=== PATIENT | male | born 1940 | race Caucasian/White ===

== ENCOUNTER 2020-01-22 07:58 | Outpatient (CLI) | payer MEDICARE, OTHER, SELFPAY ==
--- NOTE | 2020-01-22 08:00 | USCV_ITS ---
Pelon Melo Age: 79 Gender: M : 1940 Exam Date: 01/22/2020 08:23 Ordering Phys: Austin Gay MD ([email or web address]) Technologist: Jessica Lala Exam Location: [facility] [place] Indication: Carotid stenosis surveillance Risk Factors: Unknown Previous Vascular Surgery: None Right Brachial BP: / Left Brachial BP: / Right Left Velocity (cm/s) Spectral Plaque Velocity (cm/s) Spectral Plaque Syst/Diast Broadening Syst/Diast Broadening 51.30/ 16.20 Prox CCA 58.10 / 10.30 60.70/ 15.40 Hetro Mid CCA 49.60 / 13.70 Hetro 47.90/ 11.10 Hetro Distal CCA 47.90 / 13.70 Hetro 160.10/39.60 Hetro Prox ICA 160.45/ 49.40 Hetro 106.10/23.40 Mid ICA 140.70/ 32.20 101.00/31.10 Distal ICA 83.90 / 17.10 68.40 Hetro ECA 129.80 Hetro 2.64 ICA/CCA 3.33 Not Vertebral Antegrade Visualized / cm/s 48.70/ 17.10 cm/s Bi Subclavian 60.70 73.00 FINDINGS Comparison:07-11-19 Diffuse bilateral atheromatous plaque with moderate but stable elevation of velocities. Greater disease on the right. CONCLUSIONS Right ICA stenosis 50-69%. Left ICA stenosis 50-69%. Moderate diffuse calcified plaque without significant progression. Dr. Kimberlee Kay DO (Electronically Signed) Final Date: 22 January 2020 14:10 S
== END 2020-01-22 07:59 | disposition home or self-care (01) ==
LOC: RAD 08:07
PROVIDERS: PCP Family Medicine; Visit Provider Internal Medicine Cardiovascular Disease
DX: I65.23 Occlusion and stenosis of bilateral carotid arteries (principal)
CPT/HCPCS: 93880

== ENCOUNTER 2020-07-26 10:00 | Outpatient (CLI) | payer MEDICARE, OTHER, SELFPAY ==
--- NOTE | 2020-07-26 10:15 | USCV_ITS ---
Pelon Melo Age: 79 Gender: M : 1940 Exam Date: 07/26/2020 10:09 Ordering Phys: Austin Gay MD ([email or web address]) Technologist: Jane Tillman [place] [facility] [place]ication: STENOSIS Risk Factors: Previous Vascular Surgery: Right Brachial BP: / Left Brachial BP: / Right Left Velocity (cm/s) Spectral Plaque Velocity (cm/s) Spectral Plaque Syst/Diast Broadening Syst/Diast Broadening 60.60/ 15.40 Prox CCA 85.40 / 14.80 60.60/ 12.10 Mid CCA 69.90 / 11.70 55.10/ 17.60 Distal CCA 74.60 / 14.80 174.00/32.60 Prox ICA 159.10/ 32.90 111.90/23.30 Mid ICA 153.80/ 45.10 122.70/29.50 Distal ICA 146.00/ 37.30 94.80 ECA 144.60 2.87 ICA/CCA 2.28 Antegrade Vertebral Antegrade 46.60/ 6.20 cm/s 48.90/ 14.00 cm/s Tri Subclavian Tri FINDINGS Moderate to heavy heterogeneous plaques bilaterally at the bifurcations and internal carotid arteries. Intimal thickening and minimal plaques in the common carotid arteries bilaterally. Antegrade flow in the vertebral arteries bilaterally. Normal/near normal Doppler flow velocities in the external carotid arteries bilaterally CONCLUSIONS Moderate to heavy heterogeneous plaques bilaterally at the bifurcations and internal carotid arterieswith velocity elevation consistent with 50-79% stenosis. Intimal thickening and minimal plaques in the common carotid arteries bilaterally. Compared to the study from 01/22/2020, there may not be a significant change Dr Krystal Dupree MD [facility] (Electronically Signed) Final Date: 27 July 2020 09:29 S
== END 2020-07-26 10:01 | disposition home or self-care (01) ==
LOC: US 10:01
PROVIDERS: PCP Family Medicine; Visit Provider Internal Medicine Cardiovascular Disease
DX: I65.23 Occlusion and stenosis of bilateral carotid arteries (principal)
CPT/HCPCS: 93880

== ENCOUNTER 2021-04-26 07:55 | Outpatient (CLI) | payer MEDICARE, OTHER, SELFPAY ==
--- NOTE | 2021-04-26 08:21 | FL_ITS ---
WS: [id number] UPPER GI WITH AIR TECHNICAL: Double contrast upper GI FLUOROSCOPY TIME: 3.3 min minutes CLINICAL INFORMATION: DYSPHAGIA COMPARISON: None. FINDINGS: Sternotomy. Cardiac pacer. Thoracic curve. Hypertrophic changes thoracic spine. Esophagus: Moderate esophageal dysmotility with delayed emptying. No evidence of stricture or obstruc ting mass. Reflux esophagitis. Gastroesophageal reflux: Reflux to the upper thoracic esophagus. Small esophageal hiatal hernia. Stomach: Rugal thickening consistent with gastritis. Normal emptying. Duodenum: Normal duodenal C-loop. Other findings: None. FL/FL upper GI w air* [id number] IMPRESSION: 1. Moderate esophageal dysmotility with delayed emptying on the upright and [place] imaging. Reflux esophagitis in the distal esophagus. 2. No evidence of stricture or obstructing mass. 3. Prominent reflux to the upper thoracic esophagus. Small esophageal hiatal h ernia. 4. Evidence of gastric rugal thickening consistent with gastritis
== END 2021-04-26 07:56 | disposition home or self-care (01) ==
PROVIDERS: PCP Family Medicine; Visit Provider Family Medicine
DX: R13.10 Dysphagia, unspecified (principal); K44.9 Diaphragmatic hernia without obstruction or gangrene
CPT/HCPCS: 74246

== ENCOUNTER 2021-08-15 08:56 | Outpatient (CLI) | payer MEDICARE, OTHER, SELFPAY ==
--- NOTE | 2021-08-15 09:30 | USCV_ITS ---
Pelon Melo Age: 80 Gender: M : 1940 Exam Date: 08/15/2021 09:06 Ordering Phys: Huber Ng M.D ([email or web address]) Technologist: Lacie Rand [place]am [place] [facility] [place] [facility] [place]ication: RECHECK OF CCA STENOSIS Risk Factors: Unknown Previous Vascular Surgery: None Right Brachial BP: / Left Brachial BP: / Right Left Velocity (cm/s) Spectral Plaque Velocity (cm/s) Spectral Plaque Syst/Diast Broadening Syst/Diast Broadening 70.60/ 17.60 Hetro Prox CCA 64.90 / 16.20 50.60/ 11.80 Hetro Mid CCA 49.70 / 16.00 Hetro 51.90/ 11.20 Hetro Distal CCA 56.50 / 18.30 Hetro 99.20/ 26.50 Hetro Prox ICA 136.60/ 46.70 Hetro 103.65/20.40 Hetro Mid ICA 202.30/ 44.25 Hetro 116.90/22.10 Distal ICA 133.00/ 21.90 Hetro 104.70 Hetro ECA 138.40 Hetro 2.31 ICA/CCA 2.84 Antegrade Vertebral Antegrade 41.20/ 10.10 cm/s 44.40/ 13.10 cm/s Tri Subclavian [place] 95.00 185.9 0 FINDINGS Moderate to heavy heterogeneous irregular plaques bilaterally at the bifurcations and proximal internal carotid arteries. Intimal thickening and minimal plaques in the common carotid arteries bilaterally. Antegrade flow in the vertebral arteries bilaterally. Normal Doppler flow velocity in the external carotid arteries bilaterally CONCLUSIONS Moderate to heavy heterogeneous plaques at the left bifurcation and proximal internal carotid artery with velocity elevation, suggesting 50 to 69% stenosis. Moderate to heavy heterogeneous plaques at the right bifurcation and proximal internal carotid artery with a velocity elevation suggesting less than 50% stenosis. Compared to the study from 07/26/2020, there may not be a significant change Dr Krystal Dupree MD [facility] (Electronically Signed) Final Date: 15 August 2021 14:53 S
== END 2021-08-15 08:57 | disposition home or self-care (01) ==
LOC: RAD 08:58
PROVIDERS: PCP Family Medicine; Visit Provider Internal Medicine
DX: I65.23 Occlusion and stenosis of bilateral carotid arteries (principal)
CPT/HCPCS: 93880

== ENCOUNTER → 2021-12-16 08:29 | Outpatient (BNVA) | payer MEDICARE, OTHER, SELFPAY | PROVIDERS: PCP Family Medicine; Visit Provider Internal Medicine | DX: Z45.02 Encounter for adjustment and management of automatic implantable cardiac defibrillator (principal) | CPT/HCPCS: 93282 ==

== ENCOUNTER → 2022-04-25 10:22 | Outpatient (BNVA) | payer MEDICARE, SELFPAY | PROVIDERS: PCP Family Medicine; Visit Provider Family Medicine | DX: I25.10 Atherosclerotic heart disease of native coronary artery without angina pectoris (principal); E78.5 Hyperlipidemia, unspecified; I48.91 Unspecified atrial fibrillation; E11.9 Type 2 diabetes mellitus without complications; I10 Essential (primary) hypertension; Z79.01 Long term (current) use of anticoagulants | CPT/HCPCS: 80053; 80061; 83036; 85025; 85610 ==

== ENCOUNTER 2022-05-01 12:18 | Outpatient (CLI) | payer MEDICARE, OTHER, SELFPAY ==
--- NOTE | 2022-05-01 12:45 | USCV_ITS ---
Pelon Melo Age: 81 Gender: M : 1940 Exam Date: 05/01/2022 12:37 Ordering Phys: Huber Ng M.D ([email or web address]) Technologist: AD MCBRIDE [place] [facility] [place]: CCA disease Risk Factors: Previous Vascular Surgery: Right Brachial BP: / Left Brachial BP: / Right Left Velocity (cm/s) Spectral Plaque Velocity (cm/s) Spectral Plaque Syst/Diast Broadening Syst/Diast Broadening 52.10/ 15.40 Prox CCA 70.90 / 9.70 49.70/ 14.00 Mid CCA 53.40 / 12.50 60.60/ 8.50 Distal CCA 61.40 / 12.50 139.60/40.70 Prox ICA 117.10/ 29.60 73.60/ 17.40 Mid ICA 126.20/ 30.70 79.80/ 17.40 Distal ICA 132.90/ 14.90 60.20 ECA 98.40 2.30 ICA/CCA 1.87 Antegrade Vertebral Antegrade 30.70/ 2.00 cm/s 42.40/ 8.00 cm/s Tri Subclavian Tri 52.00 80.00 FINDINGS Comparison 08/15/21 CONCLUSIONS Right ICA stenosis 50-69%. slightly progressed compared to previous. Left ICA stenosis <50%. Velocites slightly improved compared to previous. Moderate calcified atheromatous plaque right carotid bulb/ICA. Moderate calcified atheromatous plaque left carotid bulb/ICA. Plaque in the CCA's bilaterally right greater than left Normal antegrade Doppler flow noted in the right vertebral artery. Normal antegrade Doppler flow noted in the left vertebral artery. Cristian Murray MD (Electronically Signed) Final Date: 01 May 2022 16:38 S
--- NOTE | 2022-05-01 13:00 | USCV_ITS ---
Pelon Melo Age: 81 Gender: M : 1940 Exam Date: 05/01/2022 13:15 Ordering Phys: Huber Ng M.D ([email or web address]) Technologist: Sonal Gleason [place]am [place] [facility] [place]ication: CAD BP: 130 / 64 HR: 52 Rhythm: Sinus Technical Quality: Good MEASUREMENTS (Male / Female) Normal Values 2D ECHO LV Diastolic Diameter PLAX 4.8 cm 4.2 - 5.9 / 3.9 - 5.3 cm LV Systolic Diameter PLAX 3.6 cm IVS Diastolic Thickness 1.1 cm 0.6 - 1.0 / 0.6 - 0.9 cm IVS Systolic Thickness 1.7 cm LVPW Diastolic Thickness 1.4 cm 0.6 - 1.0 / 0.6 - 0.9 cm LVPW Systolic Thickness 1.7 cm LV Ejection Fraction 2D Teich 48.8 % LV Ejection Fraction MOD 2C 60.3 % LV Ejection Fraction 2C AL 60.0 % LA Diameter 5.2 cm LA Width 3.6 cm LA Height 5.9 cm RA Width 5.0 cm RA Height 5.1 cm Aorta at Sinotubular Diameter 2.9 cm IVC Diameter 1.5 cm M-MODE MV E Point Septal Separation 0.7 cm DOPPLER AV Peak Velocity 205.0 cm/s LVOT Peak Velocity 63.0 cm/s MV Peak Velocity 120.0 cm/s MV Area PHT 4.2 cm squared Mitral E to A Ratio 2.5 MV E' Velocity 56.5 cm/s Mitral E to MV E' Ratio 12.6 Mitral E to LV E' Lateral Ratio 10.2 Mitral E to LV E' Septal Ratio 16.3 TR Peak Velocity 237.5 cm/s TR Peak Gradient 22.6 mmHg Right Atrial Pressure 3.0 mmHg Pulmonary Artery Systolic Pressu 25.6 mmHg PV Peak Velocity 104.0 cm/s RV Acceleration Time 0.1 s RV Ejection Time 0.3 s RV AcT/ET 0.4 FINDINGS Left Ventricle Left ventricle is normal in size. LV systolic function is normal with EF 50-55%. No regional wall motion abnormalities are seen. Right Ventricle RV is normal in size and function. Pacemaker lead is seen Right Atrium Normal in size. Pacemaker lead is seen Left Atrium Normal in size Mitral Valve Moderate mitral annular calcification is seen. Moderate eccentric regurgitation Aortic Valve Aortic valve is thickened and calcified. Mild aortic regurgitation. Mild aortic stenosis with mean gradient across aortic valve of 7.2mmHg. Tricuspid Valve Mild tricuspid regurgitation. Pulmonary artery systolic pressure is normal Pulmonic Valve Not well-visualized. Mild pulmonic regurgitation. Pericardium Normal Aorta Mildly dilated ascending aorta IVC IVC appears to normal CONCLUSIONS LV systolic function is normal with EF of 50-55% Mitral annular calcification is seen. Moderate eccentric regurgitation Aortic valve is thickened and calcified. Mild aortic regurgitation. Mild aortic stenosis Mild tricuspid regurgitation Mild pulmonic regurgitation Mildly dilated ascending aorta Compared to prior echocardiogram from 04/21/2017, LV systolic function has slightly improved. Huber Ng MD (Electronically Signed) Final Date: 04 May 2022 12:56 S
== END 2022-05-01 12:19 | disposition home or self-care (01) ==
LOC: RAD 12:22
PROVIDERS: PCP Family Medicine; Visit Provider Internal Medicine
DX: R01.1 Cardiac murmur, unspecified (principal); I65.23 Occlusion and stenosis of bilateral carotid arteries; I08.3 Combined rheumatic disorders of mitral, aortic and tricuspid valves
CPT/HCPCS: 93306; 93880

== ENCOUNTER → 2022-05-29 08:01 | Outpatient (BNVA) | payer MEDICARE, OTHER, SELFPAY | PROVIDERS: PCP Family Medicine; Visit Provider Family Medicine | DX: Z79.01 Long term (current) use of anticoagulants (principal) | CPT/HCPCS: 85610 ==

== ENCOUNTER 2022-06-09 09:58 | Outpatient (CLI) | payer MEDICARE, OTHER, SELFPAY ==
--- NOTE | 2022-06-09 10:20 | FL_ITS ---
WS: [id number] ESOPHAGRAM TECHNIQUE: Double contrast examination was performed with thin and thick barium. Upright and SMITH imag es were obtained. CLINICAL INFORMATION: Dysphagia, unspecified R13.10 COMPARISON: April 18, 2021 FINDINGS: Swallowing: No evidence of aspiration or penetration. Esophagus: Mild esophageal dysmotility with delayed emptying. Evidence of esophagitis distal one thir d esophagus. Prominent gastroesophageal SILENT reflux worse in the supine position. Reflux to the tho racic inlet. Small esophageal hiatal hernia. No high-grade stricture or obstructing mass. Gastroesophageal reflux: Prominent reflux to the thoracic inlet. Fluoroscopy time: 4min [id number] # of spot films: 15 FL/FL barium swallow [id number] IMPRESSION: Findings are similar compared to April 26, 2021 1. Moderate esophageal dysmotility with delayed emptying 2. Evidence of esophagitis in the distal one third esophagus with prominent ac tive silent reflux in the upright and supine position. This is worse in the sup ine position to the thoracic inlet. 3. No evidence of obstructing stricture or mass. 4. No evidence of aspiration penetration. 5. Prior sternotomy with AICD.
== END 2022-06-09 09:59 | disposition home or self-care (01) ==
PROVIDERS: PCP Family Medicine; Visit Provider Specialist
DX: R13.10 Dysphagia, unspecified (principal)
CPT/HCPCS: 74220

== ENCOUNTER → 2022-06-30 10:37 | Outpatient (BNVA) | payer MEDICARE, OTHER, SELFPAY | PROVIDERS: PCP Family Medicine; Visit Provider Internal Medicine | DX: I25.10 Atherosclerotic heart disease of native coronary artery without angina pectoris (principal); I25.5 Ischemic cardiomyopathy; Z95.1 Presence of aortocoronary bypass graft; E78.5 Hyperlipidemia, unspecified; I48.91 Unspecified atrial fibrillation; Z79.01 Long term (current) use of anticoagulants; I65.23 Occlusion and stenosis of bilateral carotid arteries; I12.9 Hypertensive chronic kidney disease with stage 1 through stage 4 chronic kidney disease, or unspecified chronic kidney disease; E11.22 Type 2 diabetes mellitus with diabetic chronic kidney disease; F17.210 Nicotine dependence, cigarettes, uncomplicated; N18.9 Chronic kidney disease, unspecified; Z79.84 Long term (current) use of oral hypoglycemic drugs; Z95.810 Presence of automatic (implantable) cardiac defibrillator | CPT/HCPCS: 99214 ==

== ENCOUNTER → 2022-10-11 15:49 | Outpatient (BNVA) | payer MEDICARE, OTHER, SELFPAY | PROVIDERS: PCP Family Medicine; Visit Provider Internal Medicine | DX: Z45.02 Encounter for adjustment and management of automatic implantable cardiac defibrillator (principal) | CPT/HCPCS: 93296 ==

== ENCOUNTER → 2022-10-24 08:09 | Outpatient (BNVA) | payer MEDICARE, OTHER, SELFPAY | PROVIDERS: PCP Family Medicine; Visit Provider Family Medicine | DX: E78.5 Hyperlipidemia, unspecified (principal); I25.10 Atherosclerotic heart disease of native coronary artery without angina pectoris; N18.9 Chronic kidney disease, unspecified; I48.91 Unspecified atrial fibrillation; E11.9 Type 2 diabetes mellitus without complications; I10 Essential (primary) hypertension; Z79.01 Long term (current) use of anticoagulants | CPT/HCPCS: 80053; 80061; 83036; 85025; 85610 ==

== ENCOUNTER → 2022-11-23 11:39 | Outpatient (BNVA) | payer MEDICARE, OTHER, SELFPAY | PROVIDERS: PCP Family Medicine; Visit Provider Family Medicine | DX: Z79.01 Long term (current) use of anticoagulants (principal) | CPT/HCPCS: 85610 ==

== ENCOUNTER → 2022-12-21 09:01 | Outpatient (BNVA) | payer MEDICARE, OTHER, SELFPAY | PROVIDERS: PCP Family Medicine; Visit Provider Family Medicine | DX: Z79.01 Long term (current) use of anticoagulants (principal); I48.91 Unspecified atrial fibrillation | CPT/HCPCS: 85610 ==

== ENCOUNTER 2023-01-04 08:32 | Outpatient (CLI) | payer MEDICARE, OTHER, SELFPAY ==
--- NOTE | 2023-01-04 08:45 | USCV_ITS ---
Pelon Melo Age: 82 Gender: M : 1940 Exam Date: 01/04/2023 09:07 Ordering Phys: Huber Ng M.D Technologist: HUNTER Exam Location: [facility] [place] Indication: eval for stenosis Risk Factors: Previous Vascular Surgery: Right Brachial BP: / Left Brachial BP: / Right Left Velocity (cm/s) Spectral Plaque Velocity (cm/s) Spectral Plaque Syst/Diast Broadening Syst/Diast Broadening 41.40/ 7.70 Prox CCA 56.20 / 9.90 52.60/ 10.70 Mid CCA / 46.00/ 9.20 Distal CCA 40.10 / 8.50 160.60/36.60 Prox ICA 142.10/ 37.80 50.70/ 13.20 Mid ICA 97.60 / 13.80 97.00/ 15.40 Distal ICA 96.30 / 21.30 56.50 ECA 109.80 3.10 ICA/CCA 2.53 Antegrade Vertebral Antegrade 22.50/ 4.30 cm/s 35.10/ 7.60 cm/s Bi Subclavian Tri 86.60 52.10 FINDINGS Velocities increased bilaterally since 2021 CONCLUSIONS Right ICA stenosis 50-69%. Moderate atheromatous plaque right carotid bulb/ICA. Left ICA stenosis 50-69%. Moderate atheromatous plaque left carotid bulb/ICA. Moderate plaque in bilateral CCA's Normal antegrade Doppler flow noted in the right vertebral artery. Normal antegrade Doppler flow noted in the left vertebral artery. Cristian Murray MD (Electronically Signed) Final Date: 04 January 2023 17:53 S
== END 2023-01-04 08:33 | disposition home or self-care (01) ==
LOC: RAD 08:32
PROVIDERS: PCP Family Medicine; Visit Provider Internal Medicine
DX: I65.23 Occlusion and stenosis of bilateral carotid arteries (principal)
CPT/HCPCS: 93880

== ENCOUNTER → 2023-01-12 08:56 | Outpatient (BNVA) | payer MEDICARE, OTHER, SELFPAY | PROVIDERS: PCP Family Medicine; Visit Provider Internal Medicine | DX: I25.10 Atherosclerotic heart disease of native coronary artery without angina pectoris (principal); I25.5 Ischemic cardiomyopathy; Z95.1 Presence of aortocoronary bypass graft; E78.5 Hyperlipidemia, unspecified; I48.91 Unspecified atrial fibrillation; E11.9 Type 2 diabetes mellitus without complications; I65.23 Occlusion and stenosis of bilateral carotid arteries; F17.220 Nicotine dependence, chewing tobacco, uncomplicated; I12.9 Hypertensive chronic kidney disease with stage 1 through stage 4 chronic kidney disease, or unspecified chronic kidney disease; E11.22 Type 2 diabetes mellitus with diabetic chronic kidney disease; N18.9 Chronic kidney disease, unspecified; Z79.84 Long term (current) use of oral hypoglycemic drugs | CPT/HCPCS: 99214 ==

== ENCOUNTER 2023-01-22 13:00 | Outpatient (CLI) | payer MEDICARE, OTHER, SELFPAY ==
--- NOTE | 2023-01-22 13:00 | CT_ITS ---
WS: [id number] CTA NECK TECHNIQUE: Contrast enhanced CTA of the neck with coronal and sagittal reformatted images and maximum intensity projection (MIP) images. NASCET criteria utilized. CLINICAL INFORMATION: Bilateral Carotid Stenosis COMPARISON: Carotid ultrasound January 04, 2023 DLP: 276.[address] scans at [facility] use at least one of these dose optimization techniques: automated e xposure control; mA and/or kV adjustment per patient size (includes targeted exams where dose is matc hed to clinical indication); or iterative reconstruction. FINDINGS: RIGHT: RIGHT common carotid artery is patent. Moderate atheromatous plaque RIGHT carotid bulb extendi ng into the ICA. RIGHT ICA stenosis measures 61%. RIGHT ICA remains patent to the skull base. [place] us carotid calcification. LEFT: LEFT common carotid artery is patent. Moderate calcified atheromatous plaque LEFT carotid bulb extending into the ICA. LEFT ICA stenosis measures 68%. LEFT ICA remains patent to the skull base. Ca vernous carotid calcification. LEFT vertebral artery is patent. Calcification of the LEFT vertebral artery origin. Tiny hypoplastic RIGHT vertebral artery. LEFT vertebral artery is patent to the basilar junction. Dense intracranial L EFT vertebral artery calcification. Moderate intracranial stenosis LEFT vertebral artery. Both ICAs are patent at the skull base. Moderate cavernous carotid calcification. Mastoid air cells a re well aerated. Paranasal sinuses are well aerated. Normal posterior nasopharynx and parapharyngeal fat. Calcified RIGHT thyroid nodules largest measuring 9 mm. Moderate spondylitic changes cervical sp ine. Prior sternotomy. Proximal subclavian arteries are patent. CT/CT angio neck [id number] IMPRESSION: 1. Dense calcified atheromatous plaque both carotid bulbs extending into the I Mira. 2. RIGHT ICA stenosis measures 61%. 3. LEFT ICA stenosis measures 68%. 4. LEFT dominant vertebral artery. Tiny hypoplastic RIGHT vertebral artery. 5. Partially visualized dense cavernous chronic calcification. 6. Calcified RIGHT thyroid nodule measuring 10 mm.
[2023-01-22 13:29] LABS: Blood Urea Nitrogen 20 mg/dL (8-23)
[2023-01-22] MEDS: iohexol 350 mg/mL 500 mL Btl (per mL) IV (13:37)
== END 2023-01-22 13:01 | disposition home or self-care (01) ==
LOC: RAD 13:05
PROVIDERS: PCP Family Medicine; Visit Provider Internal Medicine
DX: I65.23 Occlusion and stenosis of bilateral carotid arteries (principal)
CPT/HCPCS: 70498; 82565; 84520; Q9967

== ENCOUNTER → 2023-02-15 08:58 | Outpatient (BNVA) | payer MEDICARE, OTHER, SELFPAY | PROVIDERS: PCP Family Medicine; Visit Provider Thoracic Surgery (Cardiothoracic Vascular Surgery) | DX: I65.23 Occlusion and stenosis of bilateral carotid arteries (principal); F17.220 Nicotine dependence, chewing tobacco, uncomplicated; Z79.01 Long term (current) use of anticoagulants; Z95.810 Presence of automatic (implantable) cardiac defibrillator | CPT/HCPCS: 99203 ==

== ENCOUNTER → 2023-02-15 10:00 | Outpatient (BNVA) | payer MEDICARE, OTHER, SELFPAY | PROVIDERS: PCP Family Medicine; Visit Provider Family Medicine | DX: Z79.01 Long term (current) use of anticoagulants (principal) | CPT/HCPCS: 85610 ==

== ENCOUNTER → 2023-03-19 10:30 | Outpatient (BNVA) | payer MEDICARE, OTHER, SELFPAY | PROVIDERS: PCP Family Medicine; Visit Provider Family Medicine | DX: Z79.01 Long term (current) use of anticoagulants (principal) | CPT/HCPCS: 85610 ==

== ENCOUNTER → 2023-04-17 09:03 | Outpatient (BNVA) | payer MEDICARE, OTHER, SELFPAY | PROVIDERS: PCP Family Medicine; Visit Provider Family Medicine | DX: I25.5 Ischemic cardiomyopathy (principal); I25.10 Atherosclerotic heart disease of native coronary artery without angina pectoris; I48.91 Unspecified atrial fibrillation; E11.9 Type 2 diabetes mellitus without complications; I65.23 Occlusion and stenosis of bilateral carotid arteries; R06.00 Dyspnea, unspecified; I10 Essential (primary) hypertension | CPT/HCPCS: 80053; 80061; 83036; 83880; 84443; 85025 ==

== ENCOUNTER → 2023-04-25 15:33 | Outpatient (BNVA) | payer MEDICARE, OTHER, SELFPAY | PROVIDERS: PCP Family Medicine; Visit Provider Internal Medicine | DX: Z45.02 Encounter for adjustment and management of automatic implantable cardiac defibrillator (principal) | CPT/HCPCS: 93296 ==

== ENCOUNTER 2023-04-27 10:02 | Outpatient (CLI) | payer MEDICARE, OTHER, SELFPAY ==
--- NOTE | 2023-04-27 10:15 | USCV_ITS ---
Pelon Melo Age: 82 Gender: M : 1940 Exam Date: 04/27/2023 10:18 Ordering Phys: Иван Cabezas MD Technologist: CT Exam Location: [facility] [place] Indication: cad BP: 135 / 80 HR: 43 Rhythm: Sinus Technical Quality: Adequate MEASUREMENTS (Male / Female) Normal Values 2D ECHO LV Chamber Size 6.1 cm RV Chamber Size 4.7 cm LVOT Diameter 2.1 cm LV Ejection Fraction MOD 2C 35.3 % LV Ejection Fraction 2C AL 35.6 % LA Diameter 5.6 cm LA Width 4.9 cm LA Height 7.7 cm RA Width 4.9 cm RA Height 6.7 cm Aorta at Sinotubular Diameter 2.3 cm IVC Diameter 1.9 cm M-MODE Aortic Annulus Diameter 2.4 cm LA Ao Ratio MM 2.3 MV E Point Septal Separation 0.7 cm DOPPLER AV Peak Velocity 255.0 cm/s LVOT Peak Velocity 86.0 cm/s AV Area Cont Eq vti 1.0 cm squared AV Area Cont Eq pk 1.2 cm squared MV E' Velocity 12.0 cm/s TR Peak Velocity 352.2 cm/s TR Peak Gradient 49.6 mmHg TR Mean Velocity 225.4 cm/s TR Mean Gradient 23.7 mmHg TR Velocity Time Integral 106.1 cm TV Peak E Velocity 111.0 cm/s Right Atrial Pressure 3.0 mmHg Pulmonary Artery Systolic Pressu 52.6 mmHg PV Peak Velocity 79.0 cm/s FINDINGS Left Ventricle Left ventricle is normal size. LV systolic function is normal with EF of 55 to 60%. No regional wall motion abnormalities are seen. Right Ventricle RV is hypokinetic Right Atrium Dilated. Pacemaker lead is seen Left Atrium Dilated Mitral Valve Mitral valve is thickened. Moderate mitral regurgitation Aortic Valve Aortic valve is thickened and calcified. Mild to moderate aortic stenosis with aortic valve area 1.01 cm squared and mean gradient across aortic valve of 11.6 mmHg. Moderate aortic regurgitation. Tricuspid Valve Moderate to severe tricuspid regurgitation. RVSP is 50-55mmHg. This is consistent with moderate pulmonary hypertension Pulmonic Valve Not well visualized. Mild pulmonic regurgitation Pericardium Normal Aorta Normal in size IVC Dilated CONCLUSIONS LV systolic function is normal with EF 55 to 60%. RV is hypokinetic Biatrial dilation. Moderate mitral regurgitation Mild to moderate aortic stenosis. Moderate aortic regurgitation Moderate to severe tricuspid regurgitation. Moderate pulmonary hypertension Mild pulmonic regurgitation IVC is dilated Compared to prior echocardiogram from 2021, no significant changes are seen Huber Ng MD (Electronically Signed) Final Date: 08 May 2023 16:46 S
== END 2023-04-27 10:03 | disposition home or self-care (01) ==
PROVIDERS: PCP Family Medicine; Visit Provider Family Medicine
DX: R07.9 Chest pain, unspecified (principal); I34.0 Nonrheumatic mitral (valve) insufficiency; I07.1 Rheumatic tricuspid insufficiency; I27.20 Pulmonary hypertension, unspecified
CPT/HCPCS: 93306

== ENCOUNTER 2023-04-30 08:50 | Outpatient (CLI) | payer MEDICARE, OTHER, SELFPAY ==
[2023-04-30 09:41] VITALS: BMI 32.2
--- NOTE | 2023-04-30 09:41 | ECG_ITS ---
[facility] Test Date: 2023-04-30 Pat Name: Pelon Melo Department: Room: Gender: Male Equal Opportunity Specialist: Lin Arreola : 1940 Requested By: Иван Trotter Order Number: [id number] Leo MD: Savannah Milligan M.D. Interpretive Statements NAME OF STUDY: LEXISCAN SESTAMIBI STRESS TEST INDICATION: Dyspnea PROCEDURE: At the baseline, the blood pressure was 146/92 mmHg, oxygen saturation of 98% with a heart rate of 50 beats per min. The electrocardiogram showed sinus bradycardia with first-degree AV block. Right bundle branch block. ST depression and T wave inversion in lead II, 3, aVF V3 to V6. The Lexiscan was infused over a period of 20 seconds. A total of 0.4 milligrams of Lexiscan was infused. The stress phase was continued for a total of 5 minutes. Heart rate at the end of the stress phase was 45 bpm, oxygen saturation 98% with a blood pressure 119/71 mmHg. The EKG at the peak infusion revealed no significant ST-T wave changes. Sestamibi was injected 20 seconds after the Lexiscan infusion. Blood pressure at the end of the recovery phase was 129/63 mmHg, oxygen saturation 98% with a heart rate of 45 beats per minute. CONCLUSION: 1. Equivocal EKG response to LexiScan infusion to baseline ST-T wave changes in inferolateral leads. 2. No LexiScan induced chest pain or cardiac arrhythmia. 3. Normal blood pressure and heart rate response. 4. Sestamibi/sestamibi perfusion scan pending; see separate report. Electronically Signed On 05-04-2023 14:09:32 CDT by Savannah Milligan M.D. [id number]
--- NOTE | 2023-04-30 09:45 | NMCV_ITS ---
NM guerrero perf SPECT r/s* [id number] Pelon Melo Age: 82 Gender: M : 1940 Exam Date: 04/30/2023 10:31 Ordering Phys: Иван Cabezas MD Technologist: ARIANA Sal Exam Location: [facility] Indications: SHORTNESS OF BREATH, ATHEROSCLEROTIC HEART DISEASE STRESS TEST Please see separate stress test report in [facility] for full findings IMAGE PROTOCOL Rest/Stress 1 Lexiscan Day Radiopharmaceutical Dose (mCi) Administration Site Administered by Rest: Tc-99m 10.8 IV ARIANA Paniagua Sestamibi Stress:Tc-99m 33.0 IV ARIANA Sal Sestamibi Rest: 30-Apr-2023 60 Discovery 630 Stress: 30-Apr-2023 30 Discovery 630 0.4mg Lexiscan. Images obtained in supine and prone position. SPECT RESULTS Technical Quality: Excellent Raw Data Analysis: Normal Image Corrections: No attenuation or motion correction applied Summed Stress Score: 6 Summed Rest Score: 6 Summed Difference Score: 1 PERFUSION FINDINGS Small size perfusion abnormality of mild severity of basal to mid inferolateral jose and mid inferior wall on rest images with subtle reversibility in apical lateral wall on supine stress images. Rest images show improved tracer uptake in inferior and inferolateral jose. FUNCTIONAL RESULTS (calculated via Gated SPECT) Stress Image LV EF (%): 64 Stress EDV (mL):165 TID: 1.16 Stress ESV (mL):60 FUNCTIONAL FINDINGS: The left ventricle is normal in size. Transient Ischemia Dilatation of 1.16. The left ventricular ejection fraction is normal with a value of 64%. There is normal left ventricular wall thickening. IMPRESSIONS 1. Myocardial perfusion imaging is normal. Attenuation artifact noted in inferior lateral wall. 2. Overall left ventricular systolic function is normal without regional wall motion abnormalities, LVEF=64%. 3. EKG portion of the study will be reported separately. 4. Scan indicates low risk for cardiac events. Savannah Milligan MD (Electronically Signed) Final Date: 04 May 2023 14:35 S
[2023-04-30] MEDS: regadenoson 0.4 Mg/5 ml Syringe IVP (11:11)
[2023-04-30 11:27] VITALS: BP 129/63; PULSE 52
== END 2023-04-30 08:51 | disposition home or self-care (01) ==
LOC: CDL 08:52
PROVIDERS: PCP Family Medicine; Visit Provider Family Medicine
DX: R06.02 Shortness of breath (principal); I25.10 Atherosclerotic heart disease of native coronary artery without angina pectoris
CPT/HCPCS: 36415; 78452; 93017; 96374; A9500; J2785

== ENCOUNTER → 2023-07-13 08:52 | Outpatient (BNVA) | payer MEDICARE, OTHER, SELFPAY | PROVIDERS: PCP Family Medicine; Visit Provider Internal Medicine Cardiovascular Disease | DX: I48.91 Unspecified atrial fibrillation (principal); Z79.01 Long term (current) use of anticoagulants; I65.23 Occlusion and stenosis of bilateral carotid arteries; Z95.810 Presence of automatic (implantable) cardiac defibrillator; I13.10 Hypertensive heart and chronic kidney disease without heart failure, with stage 1 through stage 4 chronic kidney disease, or unspecified chronic kidney disease; E11.22 Type 2 diabetes mellitus with diabetic chronic kidney disease; Z79.84 Long term (current) use of oral hypoglycemic drugs; N18.9 Chronic kidney disease, unspecified; F17.220 Nicotine dependence, chewing tobacco, uncomplicated; E78.5 Hyperlipidemia, unspecified; Z95.1 Presence of aortocoronary bypass graft; I25.10 Atherosclerotic heart disease of native coronary artery without angina pectoris; I25.5 Ischemic cardiomyopathy; R06.00 Dyspnea, unspecified | CPT/HCPCS: 99214 ==

== ENCOUNTER 2023-07-19 08:23 | Outpatient (CLI) | payer MEDICARE, OTHER, SELFPAY ==
--- NOTE | 2023-07-19 08:45 | USCV_ITS ---
Pelon Melo Age: 82 Gender: M : 1940 Exam Date: 07/19/2023 08:34 Ordering Phys: Fernando Rodriguez MD (Andy) ([email or web address]/[facility] [place]) Technologist: Exam Location: [facility] [place] Indication: cca disease Risk Factors: Previous Vascular Surgery: Right Brachial BP: / Left Brachial BP: / Right Left Velocity (cm/s) Spectral Plaque Velocity (cm/s) Spectral Plaque Syst/Diast Broadening Syst/Diast Broadening 66.20/ 13.20 Hetro Prox CCA 84.10 / 19.70 Hetro 71.70/ 15.40 Hetro Mid CCA 107.80/ 22.30 Hetro 81.60/ 14.30 Hetro Distal CCA 76.20 / 18.40 Hetro 123.35/22.40 Hetro Prox ICA 199.00/ 32.20 Hetro 101.20/22.30 Hetro Mid ICA 160.80/ 20.10 Hetro 122.30/21.00 Hetro Distal ICA 138.70/ 16.10 Hetro 116.90 ECA 169.60 1.82 ICA/CCA 1.85 Antegrade Vertebral Antegrade 85.40/ 25.00 cm/s 45.10/ 10.10 cm/s Bi Subclavian Bi 77.60 246.5 0 FINDINGS Left ICA velocities slightly progressed compared to previous 01/04/23 CONCLUSIONS Right ICA stenosis <50% at the upper end of the range.. Moderate calcified atheromatous plaque right carotid bulb/ICA. Left ICA stenosis 50-69%. Moderate calcified atheromatous plaque left carotid bulb/ICA. Normal antegrade Doppler flow noted in the right vertebral artery. Normal antegrade Doppler flow noted in the left vertebral artery. Cristian Murray MD (Electronically Signed) Final Date: 19 July 2023 13:46 S
== END 2023-07-19 08:24 | disposition home or self-care (01) ==
LOC: RAD 08:23
PROVIDERS: PCP Family Medicine; Visit Provider Thoracic Surgery (Cardiothoracic Vascular Surgery)
DX: I65.23 Occlusion and stenosis of bilateral carotid arteries (principal)
CPT/HCPCS: 85610; 93880

== ENCOUNTER → 2023-08-08 12:28 | Outpatient (BNVA) | payer MEDICARE, OTHER, SELFPAY | PROVIDERS: PCP Family Medicine; Visit Provider Internal Medicine | DX: Z45.02 Encounter for adjustment and management of automatic implantable cardiac defibrillator (principal) | CPT/HCPCS: 93296 ==

== ENCOUNTER → 2023-08-16 09:43 | Outpatient (BNVA) | payer MEDICARE, OTHER, SELFPAY | PROVIDERS: PCP Family Medicine; Visit Provider Thoracic Surgery (Cardiothoracic Vascular Surgery) | DX: I65.23 Occlusion and stenosis of bilateral carotid arteries (principal); F17.220 Nicotine dependence, chewing tobacco, uncomplicated; I10 Essential (primary) hypertension | CPT/HCPCS: 99213 ==

== ENCOUNTER → 2023-10-02 12:03 | Outpatient (BNVA) | payer MEDICARE, OTHER, SELFPAY | PROVIDERS: PCP Family Medicine; Visit Provider Family Medicine | DX: I10 Essential (primary) hypertension (principal); I25.10 Atherosclerotic heart disease of native coronary artery without angina pectoris; I48.91 Unspecified atrial fibrillation; E78.5 Hyperlipidemia, unspecified; E11.9 Type 2 diabetes mellitus without complications | CPT/HCPCS: 80053; 80061; 83036; 85025 ==

== ENCOUNTER 2024-01-09 10:47 | Outpatient (CLI) | payer MEDICARE, OTHER, SELFPAY ==
--- NOTE | 2024-01-09 11:15 | USCV_ITS ---
Pelon Melo Age: 83 Gender: M : 1940 Exam Date: 01/09/2024 11:02 Ordering Phys: Fernando Rodriguez MD (Andy) ([email or web address][place] [place] Technologist: CT Exam Location: [facility] [place] Indication: Risk Factors: Previous Vascular Surgery: Right Brachial BP: / Left Brachial BP: / Right Left Velocity (cm/s) Spectral Plaque Velocity (cm/s) Spectral Plaque Syst/Diast Broadening Syst/Diast Broadening 64.60/ 14.10 Prox CCA 55.70 / 9.20 54.90/ 14.50 Mid CCA 69.70 / 9.20 48.80/ 12.10 Distal CCA 50.30 / 8.00 112.80/26.50 Prox ICA 132.10/ 29.90 92.50/ 18.30 Mid ICA 132.10/ 17.80 78.90/ 14.50 Distal ICA 81.80 / 13.10 84.10 ECA 89.90 2.30 ICA/CCA 2.60 Antegrade Vertebral Antegrade 28.00/ 0.00 cm/s 52.60/ 11.80 cm/s Tri Subclavian Bi 121.2 170.1 0 0 CONCLUSIONS Right ICA stenosis <50%. Moderate calcified atheromatous plaque right carotid bulb/ICA. Left ICA stenosis 50-69% at the lower end of the range. Moderate calcified atheromatous plaque left carotid bulb/ICA. Intimal thickening in the common carotid arteries and internal carotid arteries bilaterally. Normal antegrade Doppler flow noted in the right vertebral artery. Normal antegrade Doppler flow noted in the left vertebral artery. Cristian Murray MD (Electronically Signed) Final Date: 09 January 2024 13:03 S
== END 2024-01-09 10:48 | disposition home or self-care (01) ==
LOC: RAD 10:48
PROVIDERS: PCP Family Medicine; Visit Provider Thoracic Surgery (Cardiothoracic Vascular Surgery)
DX: I65.23 Occlusion and stenosis of bilateral carotid arteries (principal)
CPT/HCPCS: 93880

== ENCOUNTER → 2024-01-14 10:15 | Outpatient (BNVA) | payer MEDICARE, OTHER, SELFPAY | PROVIDERS: PCP Family Medicine; Visit Provider Thoracic Surgery (Cardiothoracic Vascular Surgery) | DX: I65.23 Occlusion and stenosis of bilateral carotid arteries (principal); Z87.891 Personal history of nicotine dependence; I12.9 Hypertensive chronic kidney disease with stage 1 through stage 4 chronic kidney disease, or unspecified chronic kidney disease; E11.22 Type 2 diabetes mellitus with diabetic chronic kidney disease; N18.9 Chronic kidney disease, unspecified; Z79.84 Long term (current) use of oral hypoglycemic drugs; Z95.810 Presence of automatic (implantable) cardiac defibrillator; I25.5 Ischemic cardiomyopathy; I48.91 Unspecified atrial fibrillation; I25.10 Atherosclerotic heart disease of native coronary artery without angina pectoris; Z95.1 Presence of aortocoronary bypass graft; Z79.01 Long term (current) use of anticoagulants | CPT/HCPCS: 99213 ==

== ENCOUNTER → 2024-04-02 10:37 | Outpatient (BNVA) | payer MEDICARE, OTHER, SELFPAY | PROVIDERS: PCP Family Medicine; Visit Provider Family Medicine | DX: I25.10 Atherosclerotic heart disease of native coronary artery without angina pectoris (principal); I10 Essential (primary) hypertension; I48.91 Unspecified atrial fibrillation; E78.5 Hyperlipidemia, unspecified; E11.9 Type 2 diabetes mellitus without complications | CPT/HCPCS: 80053; 80061; 83036; 85025; 85610 ==

== ENCOUNTER → 2024-05-01 08:45 | Outpatient (BNVA) | payer MEDICARE, OTHER, SELFPAY | PROVIDERS: PCP Family Medicine; Visit Provider Family Medicine | DX: I48.91 Unspecified atrial fibrillation (principal) | CPT/HCPCS: 85610 ==

== ENCOUNTER → 2024-05-16 08:42 | Outpatient (BNVA) | payer MEDICARE, OTHER, SELFPAY | PROVIDERS: PCP Family Medicine; Visit Provider Family Medicine | DX: Z79.01 Long term (current) use of anticoagulants (principal) | CPT/HCPCS: 85610 ==

== ENCOUNTER 2024-06-04 13:29 | Inpatient (IN) | payer MEDICARE, SELFPAY ==
[2024-06-04] VITALS (12 sets, daily range): BP systolic 56–153; BP diastolic 42–81; PULSE 46–87; RESP 14–18; TEMP 36.7–36.8; O2SAT 95–100; BMI 31.3; BMI 32.4
--- NOTE | 2024-06-04 13:36 | XR_ITS ---
WS: [id number] XR elbow RT min 3V* [id number] REASON FOR EXAM: bruising/pain FINDINGS: No acute fracture identified. Joint spaces of the elbow are intact and well preserved. XR/XR elbow RT min 3V* [id number] IMPRESSION: No acute abnormality.
--- NOTE | 2024-06-04 13:36 | XR_ITS ---
WS: [id number] XR shoulder RT min 2V* [id number] REASON FOR EXAM: bruising/pain FINDINGS: No acute fracture. Moderate narrowing of the acromioclavicular joint with moderate osteophytosis and mild subchondral sc lerosis. The glenohumeral joint is not well demonstrated but appears to be moderately narrowed. There is moder ate subchondral sclerosis of the glenoid and mild spurring of the humeral head. XR/XR shoulder RT min 2V* [id number] IMPRESSION: No acute abnormality. 

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
[2024-06-04 14:44] LABS: Basophils % 0.4 %; Hematocrit 33.7 % (37-53); Lymphocytes # 0.8 10^3/uL (0.8-4.8); Lymphocytes % 8.4 %; Mean Corpuscular HGB Conc 30.9 g/dL (30-55); Mean Corpuscular Hemoglobin 27.6 pg (27-33); Mean Corpuscular Volume 89.4 fl (82-101); Mean Platelet Volume 11.2 fL (7.4-10.4); Monocytes # 0.4 10^3/uL (0.2-0.9); Monocytes % 4.5 %; Neutrophils % 86.4 %; Nucleated Red Blood Cells % 0 %; Platelet Count 162 10^3/cmm (157-399); Red Blood Count 3.77 10^6/uL (3.85-5.65); Red Cell Distribution Width 13.2 % (12.1-15.1); White Blood Count 9.38 10^3/uL (3.29-11.43)
[2024-06-04 14:48] LABS: INR 2.85 (0.8-1.2)
[2024-06-04 14:49] LABS: Partial Thromboplastin Time 40.9 SECONDS (23.9-36.7)
[2024-06-04 15:03] LABS: Blood Urea Nitrogen 31 mg/dL (8-23); Carbon Dioxide 23 mmol/L (22-29); Chloride 100 mmol/L (98-107); Creatinine Clr Calc Pharmacy 38.8966; Glucose 346 mg/dL (65-115); Osmolality Calculated 300 mOsm/kg (285-295); Sodium 135 mmol/L (136-145)
--- NOTE | 2024-06-04 15:06 | PC.PHAR ---
pt is compliant on his medications and gets a 90 day supply per fill
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
[2024-06-04] MEDS: sodium chloride 0.9% 1,000 ML 999 ML IV (15:40)
[2024-06-04] MEDS: iohexol 350 mg/mL 500 mL Btl (per mL) IV (16:22)
[2024-06-04 17:33] LABS: Hematocrit 31.1 % (37-53)
--- NOTE | 2024-06-04 18:12 | ECG_ITS ---
[facility] Test Date: 2024-06-04 Pat Name: Pelon Melo Department: Room: Gender: Male Copywriter: : 1940 Requested By: Yg Pimentel Order Number: [id number] Leo MD: SAMIRA CALABRESE Measurements Intervals [place] Rate: 59 P: 0 NC: 0 QRS: 23 QRSD: 167 T: 25 QT: 471 QTc: 470 Interpretive Statements ATRIAL FIBRILLATION WITH SLOW VENTRICULAR RESPONSE INTRAVENTRICULAR CONDUCTION DELAY [130+ ms QRS DURATION] Compared to ECG 04/25/2017 06:05:19 Intraventricular conduction delay now present Sinus rhythm no longer present Ventricular premature complex(es) no longer present Electronically Signed On 06-06-2024 00:33:10 CHILD AND ADOLESCENT PSYCHOLOGIST by SAMIRA CALABRESE [email or web address]
--- NOTE | 2024-06-04 18:25 | XRR_ITS ---
PROCEDURE INFORMATION: Exam: XR Chest Exam date and time: 06/04/2024 6:32 PM Age: 83 years old Clinical indication: Other: Anemia; Additional info: Anemia, right chest hematoma TECHNIQUE: Imaging protocol: Radiologic exam of the chest. Views: 1 view. COMPARISON: [place] [id number] 06/04/2024 4:11 PM FINDINGS: Tubes, catheters and devices: Left-sided pacemaker. Lungs: Unremarkable. No consolidation. Pleural spaces: Unremarkable. No pleural effusion. No pneumothorax. Heart/Mediastinum: Cardiomegaly. Bones/joints: Sternotomy wires. XR/XR chest 1V portable [id number] IMPRESSION: 1. Cardiomegaly. 2. Left-sided pacemaker. 3. Sternotomy wires.
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
[2024-06-04 19:39] LABS: Ketone (Acetest) Serum Negative (Negative)
[2024-06-04 19:52] LABS: Lactic Sepsis W/Reflex 3.9 mmol/L (0.5-2.2)
[2024-06-04 20:02] LABS: Procalcitonin 0.05 ng/mL (0-0.5); Thyroid Stimulating Hormone 1.05 uIU/mL (0.27-4.20)
[2024-06-04] MEDS: pantoprazole 40 mg SDV IVP (20:10)
[2024-06-04] MEDS: sodium chloride 0.9% 1,000 ML 100 ML IV (20:10)
[2024-06-04 20:17] LABS: Alanine Aminotransferase 9 U/L (0-41); Albumin Level 3.5 g/dL (3.5-5.2); Alkaline Phosphatase 54 U/L (40-130); Aspartate Amino Transferase 13 U/L (0-40); Blood Urea Nitrogen 30 mg/dL (8-23); C Reactive Protein 7.7 mg/L (0.0-4.9); Calcium 9.7 mg/dL (8.5-10.5); Carbon Dioxide 21 mmol/L (22-29); Chloride 101 mmol/L (98-107); Creatine Phosphokinase 61 U/L (39-308); Creatinine Clr Calc Pharmacy 41.4897; Ferritin 86 ng/mL (30-400); Globulin 2.5 g/dL (1.3-4.6); Glucose 249 mg/dL (65-115); Iron 54 ug/dL (59-158); Osmolality Calculated 295 mOsm/kg (285-295); Sodium 135 mmol/L (136-145); Total Bilirubin 0.9 mg/dL (0.15-1.2)
[2024-06-04 20:26] LABS: Anion Gap 17.4 (5-19); Potassium 4.4 mmol/L (3.5-5.1); Troponin(5th) Baseline 18 ng/L (0-15)
[2024-06-04 20:59] LABS: Reflex Lactate Order REFLEX LACTIC ORDERD
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
[2024-06-04 21:53] LABS: Hematocrit 30.2 % (37-53)
[2024-06-04 22:15] LABS: Troponin 5 2HR 17.79 ng/L (0-15)
[2024-06-04 22:16] LABS: Lactic Acid level (Lactate) 3.2 mmol/L (0.5-2.2); Troponin 5 2HR Delta -0.21 ABS# (0-10)
[2024-06-05] VITALS (17 sets, daily range): BP systolic 86–153; BP diastolic 53–79; PULSE 58–90; RESP 14–18; TEMP 36.4–36.9; O2SAT 97–100; BMI 32.8
[2024-06-05 01:07] LABS: Hematocrit 29.6 % (37-53)
[2024-06-05 01:26] LABS: Troponin 5 6HR 18.54 ng/L (0-15); Troponin 5 6HR Delta 0.54 ng/L (0-12)
--- NOTE | 2024-06-05 03:43 | ECG_ITS ---
[employer] Test Date: 2024-06-05 Pat Name: Pelon Melo Department: Room: 278 Gender: Male Customer Support Consultant: : 1940 Requested By: Zain Wagner Order Number: [id number] Reading MD: SAMIRA CALABRESE Measurements Intervals [place] Rate: 60 P: 0 CA: 0 QRS: 28 QRSD: 170 T: -64 QT: 474 QTc: 476 Interpretive Statements ATRIAL FIBRILLATION INTRAVENTRICULAR CONDUCTION DELAY [130+ ms QRS DURATION] Compared to ECG 06/04/2024 18:28:01 No significant changes Electronically Signed On 06-06-2024 00:32:19 RECEIVING SPECIALIST by SAMIRA CALABRESE [id number]
[2024-06-05] MEDS: pantoprazole 40 mg SDV IVP ×2 (05:21→17:39)
[2024-06-05 05:33] LABS: Basophils # 0.1 10^3/uL (0.0-0.1); Basophils % 0.6 %; Eosinophils % 0.4 %; Hematocrit 28.9 % (37-53); Lymphocytes % 18.7 %; Mean Corpuscular HGB Conc 30.8 g/dL (30-55); Mean Corpuscular Hemoglobin 27.8 pg (27-33); Mean Corpuscular Volume 90.3 fl (82-101); Mean Platelet Volume 11.2 fL (7.4-10.4); Monocytes # 1.1 10^3/uL (0.2-0.9); Monocytes % 10.3 %; Neutrophils # 7.39 10^3/uL (1.8-7.7); Neutrophils % 69.4 %; Nucleated Red Blood Cells % 0 %; Platelet Count 151 10^3/cmm (157-399); Red Cell Distribution Width 13.2 % (12.1-15.1); White Blood Count 10.63 10^3/uL (3.29-11.43)
[2024-06-05 05:46] LABS: INR 3.08 (0.8-1.2)
[2024-06-05 05:51] LABS: Alanine Aminotransferase 7 U/L (0-41); Albumin Level 3.2 g/dL (3.5-5.2); Alkaline Phosphatase 50 U/L (40-130); Aspartate Amino Transferase 14 U/L (0-40); Blood Urea Nitrogen 27 mg/dL (8-23); Calcium 9.1 mg/dL (8.5-10.5); Carbon Dioxide 19 mmol/L (22-29); Chloride 106 mmol/L (98-107); Creatinine Clr Calc Pharmacy 48.9594; Globulin 2.8 g/dL (1.3-4.6); Glucose 167 mg/dL (65-115); Osmolality Calculated 295 mOsm/kg (285-295); Sodium 138 mmol/L (136-145); Total Bilirubin 0.7 mg/dL (0.15-1.2)
[2024-06-05 08:00] LABS: Glucose Point of Care 161 mg/dL (70-110)
[2024-06-05] MEDS: sodium chloride 0.9% 1,000 ML 100 ML IV ×2 (08:20→21:15)
[2024-06-05] MEDS: finasteride 5 mg Tablet PO (08:20)
[2024-06-05] MEDS: phytonadione (ADULT) 10 mg/mL Ampule 1 mL SUBCUT (09:36)
--- NOTE | 2024-06-05 10:04 | PC.CHAP ---
Pastoral Care Encounter/Spiritual Assessment Type of Contact [] Declined mold stamper and repairer visit [] Patient/Family/Request visit [] Outpatient visit [] Follow-up visit [] Physician referral [] Code/Alert [x] Routine visit [] Staff referral [] Actively dying [] Patient sleeping [x] Family support [] [] Out of room [] Palliative care [] [] Receiving care in room [] Pre-surgical visit [] Trauma [] Long length of stay [] ICU visit [] Other: Relational/Emotional Strength [x] Patient feels connected with others/family/visitors/staff [] Distress [] Loneliness/isolation [] Abandonment Spirituality of Patient [x] Person of Leslie [] Attends Religion of their Leslie [x] Believes in Prayer [] Reads Bible or Rastafarian materials [] There are Spiritual issues to be addressed Fruit Farmer Interventions [x] Prayer [x] Active listening [] Non-anxious presence [x] Spiritual/emotional support [] Crisis/trauma care [] Spiritual counseling [] Bereavement support [] Provided bereavement packet [] Provided Bible/devotional materials [] Provided toy/stuffed animal, coloring book to patient or family member [] Provided Communion [] Anointing/Welcome [] Salvation [x] Completed spiritual assessment [] Other: Impact on Illness or Injury [] Angry [] Fearful [] Anxious [] Often cries [] Exhaustion [] Unable to work [] Unable to attend sabianist [] Unable to walk/stand [] Unable to read [] Unable to drive [] Unable to eat/drink [] Unable to sleep [] Unable to be with family [] Patient intubated [] Other: Summary Time spent with patient 5 min
[2024-06-05 10:59] LABS: Glucose Point of Care 194 mg/dL (70-110)
[2024-06-05] MEDS: sodium chloride 0.9% (100 ml) 100 ML 50 ML (12:49)
[2024-06-05 14:47] LABS: Bilirubin Urine Negative (Negative); Blood Urine Negative (Negative); Glucose Urine UA Negative (Normal); Ketones Urine Negative (Negative); Leukocyte Esterase Urine Negative (Negative); Nitrate Urine Negative (Negative); Protein Urine Negative (Negative); Specific Gravity, Urine 1.026 (1.005-1.030); Urine Appearance Clear (CLEAR); Urine Color Yellow (Yellow); Urobilinogen Urine 0.2 mg/dL (Negative)
[2024-06-05 14:50] LABS: Add Urine Microscopic? YES; Bacteria Urine None Seen /hpf; Hyaline Casts Urine 1.62 /lpf; RBC Urine 0-2 /hpf (0-2); Squamous Epithelial Cell Urine 0-5 /hpf (0-5); WBC Urine 0-5 /hpf (0-5)
--- NOTE | 2024-06-05 15:44 | P.PN_ITS ---
Subjective 2 Subjective: Patient was seen this morning, he tells me he feels better, no nausea, no vomiting, no chest pain does report swelling of the right shoulder right biceps right arm right chest has improved, we discussed his drop in hemoglobin at 8.9 we will have to monitor him as inpatient, given his drop in hemoglobin and his elevated INR up to 3 I am going to start him on vitamin K and FFP, will have to try to reverse his INR, discussed risks and benefits, including but limited to risk of stroke, CAD we down the hand risk of bleeding, worsening hematoma, risk of compartment syndrome, he voiced understanding, all consents are, agreed to proceed we will watch his hemoglobin every 6 hours, repeat his INR, systolic blood pressure still drops over 36 points upon standing up, continue IV fluids Vitals/I&O/Wt Last Vital Signs Temp 97.6 F 06/05/24 14:37 Pulse 70 06/05/24 14:37 Resp 16 06/05/24 14:37 BP 148/79 06/05/24 14:37 Pulse Ox 97 06/05/24 14:37 O2 Del Method Room Air 06/05/24 11:36 06/05/24 06/05/24 06/05/24 06:59 14:59 22:59 Intake Total 1000 / 2000 572.333 / 572.333 100 / 672.333 Output Total 400 / 400 300 / 300 Balance 600 / 1600 272.333 / 272.333 100 / 372.333 Weight last 48 hrs Weight 95.028 kg Weight 93.894 kg Weight 90.718 kg Physical Exam 2 Const: COMMON NORMALS: no acute distress and patient oriented x3 Resp: COMMON NORMALS: normal respiratory effort, No retractions, No use of accessory muscles and clear to auscultation bilaterally AUSCULTATION: clear to auscultation bilaterally Cardio: COMMON NORMALS: regular rate, regular rhythm, S1 normal heart sound present and S2 normal heart sound present RATE: regular rate RHYTHM: r egular rhythm HEART SOUNDS: S1 normal heart sound present and S2 normal heart sound present GI: COMMON NORMALS: Normal to inspection, nondistended, normoactive bowel sounds present and non-tender Extremity: COMMON NORMALS: no pedal edema Neuro: COMMON NORMALS: patient oriented x3 Psych: COMMON NORMALS: mental status grossly normal Skin: NARRATIVE SKIN EXAM: Erythema, swelling, hematoma, right shoulder, right biceps, right side of the chest wall Data 06/05/24 05:05 06/05/24 05:05 A&P Assessment and plan (1) Orthostatic hypotension: (2) Acute kidney injury: (3) Hematoma: (4) Anticoagulant long-term use: (5) Diabetes: (6) CKD (chronic kidney disease): (7) Acute anemia: (8) Elevated INR: Plan Orthostatic hypotension, systolic blood pressure drops 35 points ? Likely a combination of patient's mild to moderate aortic stenosis, with his intramuscular hematoma, and his blood pressure medications, dehydration ? Keep on bedrest for now, discussed with patient to stay in bed as he has a high risk of falls, as his blood pressure dropped to 50 points, morbidity and mortality discussed ? IV fluids ? Check orthostats every 12 hours ? Telemetry monitoring Intramuscular hematoma, right upper extremity, right chest Right subclavian artery: No acute findings. No occlusion or significant stenosis. Axillary artery: No acute findings. No occlusion or significant stenosis. Brachial artery: No acute findings. No occlusion or significant stenosis. Radial artery: No acute findings. No occlusion or significant stenosis. Ulnar artery: No acute findings. No occlusion or significant stenosis. Soft tissues: There is a large amount of infiltrating intramuscular hematoma involving the right pectoralis muscle group in the hematoma extends into the right axilla. Hematoma also extends into the right arm within the biceps muscle group. There is no evidence of active contrast extravasation however. No arterial injury is noted. Extensive soft tissue swelling also involves the forearm but with no evidence of contrast extravasation. -No radiographic evidence of acute bleeding ? Continue to clinically monitor closely ? Monitor hemoglobin every 4 hours ? Monitor hemodynamics ? Transfuse if hemoglobin less than 7, how much her hemoglobin every 4 hours ? INR up to 3, hemoglobin dropped to 8.9, transfuse 1 unit FFP, vitamin K recheck INR at noon ? Hold Coumadin ? Monitor INR Acute kidney injury, creatinine 1.3 ? Check CPK ? Likely second orthostatic hypotension, intramuscular hematoma, polypharmacy, dehydration Atrial fibrillation on Coumadin -Discussed risk and benefits of holding anticoagulation, shared decision making, voiced understanding, all question answered, agreed to hold Type 2 diabetes mellitus, low-dose sliding scale DNR/DNI Scd for DVT prophylaxis, Lovenox relatively contraindicated given hematoma as above Attestations 2 Medical Necessity Statement*: Patient requires hospitalization for intramuscular hematoma, orthostatic hypotension, acute anemia, elevated INR Diagnoses Orthostatic hypotension I95.1 Acute kidney injury N17.9 Hematoma T14.8XXA Anticoagulant long-term use Z79.01 Diabetes E11.9 CKD (chronic kidney disease) N18.9 Acute anemia D64.9 Elevated INR R79.1
[2024-06-05 16:53] LABS: Hematocrit 27.2 % (37-53)
[2024-06-05 17:09] LABS: Glucose Point of Care 219 mg/dL (70-110)
[2024-06-05 17:16] LABS: INR 2.56 (0.8-1.2)
[2024-06-05] MEDS: insulin lispro 100 unit/1 mL SUBCUT (17:39)
[2024-06-05 20:16] LABS: Hematocrit 27.4 % (37-53)
[2024-06-05 20:34] LABS: Glucose Point of Care 152 mg/dL (70-110)
[2024-06-06] VITALS (14 sets, daily range): BP systolic 113–141; BP diastolic 63–82; PULSE 72–94; RESP 16–19; TEMP 36.2–37; O2SAT 96–100
[2024-06-06 05:23] LABS: Basophils # 0.1 10^3/uL (0.0-0.1); Basophils % 0.8 %; Eosinophils # 0.1 10^3/uL (0.0-0.8); Eosinophils % 1.1 %; Hematocrit 25.8 % (37-53); Lymphocytes # 1.6 10^3/uL (0.8-4.8); Lymphocytes % 13.9 %; Mean Corpuscular HGB Conc 30.6 g/dL (30-55); Mean Corpuscular Hemoglobin 27.8 pg (27-33); Mean Corpuscular Volume 90.8 fl (82-101); Mean Platelet Volume 10.9 fL (7.4-10.4); Monocytes # 1.2 10^3/uL (0.2-0.9); Monocytes % 10.4 %; Neutrophils # 8.38 10^3/uL (1.8-7.7); Neutrophils % 73.3 %; Nucleated Red Blood Cells % 0 %; Platelet Count 126 10^3/cmm (157-399); Red Blood Count 2.84 10^6/uL (3.85-5.65); Red Cell Distribution Width 13.5 % (12.1-15.1); White Blood Count 11.44 10^3/uL (3.29-11.43)
[2024-06-06 05:47] LABS: Alanine Aminotransferase 7 U/L (0-41); Albumin Level 3.2 g/dL (3.5-5.2); Alkaline Phosphatase 50 U/L (40-130); Anion Gap 15.2 (5-19); Aspartate Amino Transferase 17 U/L (0-40); Blood Urea Nitrogen 23 mg/dL (8-23); Calcium 8.5 mg/dL (8.5-10.5); Carbon Dioxide 20 mmol/L (22-29); Chloride 106 mmol/L (98-107); Creatinine Clr Calc Pharmacy 53.5843; Globulin 2.4 g/dL (1.3-4.6); Glucose 178 mg/dL (65-115); Osmolality Calculated 292 mOsm/kg (285-295); Potassium 4.2 mmol/L (3.5-5.1); Sodium 137 mmol/L (136-145); Total Protein 5.6 g/dL (6.6-8.7)
[2024-06-06] MEDS: pantoprazole 40 mg SDV IVP (05:51)
[2024-06-06] MEDS: sodium chloride 0.9% 1,000 ML 100 ML IV (05:51)
[2024-06-06 06:25] LABS: Glucose Point of Care 212 mg/dL (70-110)
[2024-06-06] MEDS: finasteride 5 mg Tablet PO (08:53)
[2024-06-06] MEDS: insulin lispro 100 unit/1 mL SUBCUT ×2 (08:53→11:36)
[2024-06-06] MEDS: phytonadione (ADULT) 10 mg/mL Ampule 1 mL SUBCUT (08:56)
[2024-06-06 10:54] LABS: Glucose Point of Care 228 mg/dL (70-110)
--- NOTE | 2024-06-06 13:39 | PC.SOCIAL ---
IMM Updated Updated pt on IMM. No questions voiced. Provided pt a copy. Initialed, dated, & timed a copy & placed in chart.
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
[2024-06-06 16:01] LABS: INR 2.01 (0.8-1.2)
[2024-06-06 16:47] LABS: Glucose Point of Care 111 mg/dL (70-110)
--- NOTE | 2024-06-06 18:03 | PC.NURSE ---
Called report to [facility] and gave report on patient upon transfer. IV flushed and intact.
== END 2024-06-06 16:30 | disposition short-term general hospital (02) | DRG 605 ==
LOC: ER 19:34 → MEDSURG 20:05
PROVIDERS: Emergency Medicine; Admitting Provider Family Medicine; Emergency Provider Physician Assistant; PCP Family Medicine; Visit Provider Family Medicine
DX: S40.021A Contusion of right upper arm, initial encounter (principal); D68.32 Hemorrhagic disorder due to extrinsic circulating anticoagulants; N17.9 Acute kidney failure, unspecified; X58.XXXA Exposure to other specified factors, initial encounter; I25.10 Atherosclerotic heart disease of native coronary artery without angina pectoris; E11.22 Type 2 diabetes mellitus with diabetic chronic kidney disease; N18.9 Chronic kidney disease, unspecified; I48.91 Unspecified atrial fibrillation; I65.23 Occlusion and stenosis of bilateral carotid arteries; I25.5 Ischemic cardiomyopathy; E78.5 Hyperlipidemia, unspecified; T45.515A Adverse effect of anticoagulants, initial encounter; D64.9 Anemia, unspecified; Z66 Do not resuscitate; E86.0 Dehydration; I35.0 Nonrheumatic aortic (valve) stenosis; I95.1 Orthostatic hypotension; Z95.1 Presence of aortocoronary bypass graft; Z79.01 Long term (current) use of anticoagulants; Z79.84 Long term (current) use of oral hypoglycemic drugs; Z95.810 Presence of automatic (implantable) cardiac defibrillator; Z82.49 Family history of ischemic heart disease and other diseases of the circulatory system; Z80.9 Family history of malignant neoplasm, unspecified; Z83.3 Family history of diabetes mellitus
CPT/HCPCS: 36415; 36416; 36430; 71045; 73030; 73080; 73206; 80048; 80053; 81001; 82009; 82550; 82728; 82962; 83540; 83605; 84145; 84443; 84484; 85014; 85018; 85025; 85610; 85730; 86140; 86850; 86900; 86920; 86927; 93005; 94664; 96372; 99285; G0378; J1815; J2470; J3430; J7030; P9016; P9017

== ENCOUNTER → 2024-06-19 13:17 | Outpatient (BNVA) | payer MEDICARE, OTHER, SELFPAY | PROVIDERS: PCP Family Medicine; Visit Provider Family Medicine | DX: D64.9 Anemia, unspecified (principal) | CPT/HCPCS: 80048; 85025 ==

== ENCOUNTER → 2024-07-09 10:19 | Outpatient (BNVA) | payer MEDICARE, OTHER, SELFPAY | PROVIDERS: PCP Family Medicine; Visit Provider Family Medicine | DX: D64.9 Anemia, unspecified (principal); Z79.01 Long term (current) use of anticoagulants | CPT/HCPCS: 80048; 85025 ==

== ENCOUNTER → 2024-07-14 14:53 | Outpatient (BNVA) | payer MEDICARE, OTHER, SELFPAY | PROVIDERS: PCP Family Medicine; Visit Provider Internal Medicine | DX: I25.10 Atherosclerotic heart disease of native coronary artery without angina pectoris (principal); I65.23 Occlusion and stenosis of bilateral carotid arteries; I25.5 Ischemic cardiomyopathy; Z95.1 Presence of aortocoronary bypass graft; E78.5 Hyperlipidemia, unspecified; I48.91 Unspecified atrial fibrillation; I12.9 Hypertensive chronic kidney disease with stage 1 through stage 4 chronic kidney disease, or unspecified chronic kidney disease; E11.22 Type 2 diabetes mellitus with diabetic chronic kidney disease; N18.9 Chronic kidney disease, unspecified; Z79.01 Long term (current) use of anticoagulants; Z79.84 Long term (current) use of oral hypoglycemic drugs | CPT/HCPCS: 99214 ==

== ENCOUNTER 2024-07-16 13:31 | Outpatient (CLI) | payer MEDICARE, OTHER, SELFPAY ==
--- NOTE | 2024-07-16 14:15 | USCV_ITS ---
Pelon Melo Age: 83 Gender: M : 1940 Exam Date: 07/16/2024 13:39 Ordering Phys: Huber Ng M.D ([email or web address]) Technologist: WINSOME Exam Location: [facility] [place] Indication: bilateral stenosis Risk Factors: Previous Vascular Surgery: Right Brachial BP: / Left Brachial BP: / Right Left Velocity (cm/s) Spectral Plaque Velocity (cm/s) Spectral Plaque Syst/Diast Broadening Syst/Diast Broadening 55.90/ 11.10 Prox CCA 52.30 / 7.30 48.60/ 12.50 Mid CCA 76.00 / 14.00 62.70/ 11.00 None Distal CCA 53.40 / 12.10 103.30/17.90 Prox ICA 143.20/ 34.00 68.40/ 8.10 Mid ICA 118.70/ 31.30 86.10/ 17.50 Distal ICA 43.90 / 11.10 79.50 ECA 104.90 1.60 ICA/CCA 2.70 Antegrade Vertebral Antegrade 27.60/ 7.40 cm/s 74.80/ 11.20 cm/s Tri Subclavian Bi 87.50 334.0 0 FINDINGS No significant interval changes CONCLUSIONS Right ICA stenosis <50%. Mild atheromatous plaque right carotid bulb/ICA. Left ICA stenosis 50-69%. Moderate atheromatous plaque left carotid bulb/ICA. Normal antegrade Doppler flow noted in the right vertebral artery. Normal antegrade Doppler flow noted in the left vertebral artery. Cristian Murray MD (Electronically Signed) Final Date: 16 July 2024 15:31 S
== END 2024-07-16 13:32 | disposition home or self-care (01) ==
LOC: RAD 13:32
PROVIDERS: PCP Family Medicine; Visit Provider Internal Medicine
DX: I65.23 Occlusion and stenosis of bilateral carotid arteries (principal)
CPT/HCPCS: 93880

== ENCOUNTER → 2024-08-12 09:47 | Outpatient (BNVA) | payer MEDICARE, OTHER, SELFPAY | PROVIDERS: PCP Family Medicine; Visit Provider Family Medicine | DX: I10 Essential (primary) hypertension (principal); I25.10 Atherosclerotic heart disease of native coronary artery without angina pectoris; I48.91 Unspecified atrial fibrillation; Z79.01 Long term (current) use of anticoagulants; E11.9 Type 2 diabetes mellitus without complications | CPT/HCPCS: 80053; 80061; 83036; 85025; 85610 ==

== ENCOUNTER 2024-09-30 08:30 | Outpatient (CLI) | payer MEDICARE, OTHER, SELFPAY ==
--- NOTE | 2024-09-30 | FL_ITS ---
NE barium swallow [id number] REASON FOR EXAM: DYSPHAGIA FLUOROSCOPY TIME: 2min [id number] # OF SPOT FILMS: Multiple TECHNIQUE: Patient was evaluated in the standing upright AP and lateral, prone SMITH, supine, and LPO projections. FINDINGS: The cervical esophagus demonstrated normal motility and anatomy. In the upright position the thoracic esophagus demonstrated mild dilatation but emptied promptly. In the prone SMITH, supine, and LPO positions there were intermittent losses of the primary peristaltic wave with retention of barium in the mid esophagus and intermittent retrograde reflux toward the thoracic inlet. A few episodes of moderate tertiary contractions were noted. No significant hiatal hernia or reflux. No distal esophageal narrowing. IMPRESSION: Mild thoracic esophageal dysmotility elicited when the patient is not upright. MTDD
== END 2024-09-30 08:31 | disposition home or self-care (01) ==
PROVIDERS: PCP Family Medicine; Visit Provider Specialist
DX: R13.19 Other dysphagia (principal); K22.4 Dyskinesia of esophagus
CPT/HCPCS: 74220

== ENCOUNTER 2024-10-06 14:42 | Outpatient (CLI) | payer MEDICARE, OTHER, SELFPAY ==
--- NOTE | 2024-10-06 14:46 | CT_ITS ---
WS: [id number] CT NECK TECHNIQUE: Contrast-enhanced CT of the neck with coronal and sagittal reformatted images. CLINICAL INFORMATION: DYSPHAGIA COMPARISON: None. DLP: 202.[address] scans at [facility] use at least one of these dose optimization techniques: automated exposure control; mA and/or kV adjustment per patient size (includes targeted exams where dose is matched to clinical indication); or iterative reconstruction. FINDINGS: Cardiac pacer. Straightening of the normal cervical lordosis. Moderate spondylitic changes cervical spine. Aortic calcification. Calcified RIGHT thyroid nodule measuring 12 x 11 mm. Paranasal sinuses and mastoid air cells are well aerated. Parotid glands are normal. Normal submandibular glands. Normal posterior nasopharynx and parapharyngeal fat. No evidence of supraglottic or glottic mass. Calcifications involving the epiglottis. Normal vallecula and piriform sinuses. Normal glottis. Normal subglottic airway. Partially visualized pleural effusions posteriorly. Dense bilateral carotid bulb calcification. Carotid stenosis could be further evaluated with ultrasound or CTA neck. No cervical lymphadenopathy. Sternotomy. CT/CT neck w con* [id number] IMPRESSION: 1. No evidence of supraglottic or glottic mass. Benign-appearing calcification s involving the epiglottis. 2. Calcified RIGHT thyroid nodule measuring 12 x 12 mm. 3. Salivary glands are normal. 4. Dense carotid bulb calcification. 5. Bilateral pleural effusions partially visualized.
[2024-10-06] MEDS: iohexol 350 mg/mL 500 mL Btl (per mL) IV (15:14)
== END 2024-10-06 14:43 | disposition home or self-care (01) ==
PROVIDERS: Visit Provider Specialist
DX: R13.19 Other dysphagia (principal); R93.89 Abnormal findings on diagnostic imaging of other specified body structures; E04.1 Nontoxic single thyroid nodule; I65.23 Occlusion and stenosis of bilateral carotid arteries; J90 Pleural effusion, not elsewhere classified; M47.892 Other spondylosis, cervical region; I70.0 Atherosclerosis of aorta; Z98.890 Other specified postprocedural states
CPT/HCPCS: 70491

== ENCOUNTER 2024-10-08 18:44 | Emergency (ER) | payer MEDICARE, OTHER, SELFPAY ==
[2024-10-08 18:48] VITALS: BP 167/90; PULSE 70; RESP 18; TEMP 36.2; O2SAT 98
[2024-10-08 18:56] VITALS: BP 167/90; PULSE 70; RESP 18; O2SAT 98
--- NOTE | 2024-10-08 19:18 | W.ED.WOUNDLC ---
HPI - Wound/Laceration General: Chief Complaint: Wound/Laceration Stated Complaint: right arm has lac Time Seen by Provider: 10/08/24 18:58 Source: patient Mode of arrival: ambulatory Limitations: no limitations History of Present Illness: Patient is an 83-year-old male with history of anticoagulant use presenting for bleeding of right skin tear since yesterday. He had a CT performed and states he bumped to the area, which has been causing bleeding since. Minimal bleeding here in the ED, vitals unremarkable. No other symptoms to report. Onset (ago): day(s) Extremity Location: Right: forearm Context: accidental Associated symptoms: Denies chills, fever(s), nausea or vomiting Treatments prior to arrival: bandage Related Data Previous Rx's ?Medication ?Instructions ?Recorded amlodipine 10 mg tablet 10 mg PO DAILY #90 tabs 08/04/24 cholecalciferol (vitamin D3) 25 25 mcg PO DAILY #90 caps 08/04/24 mcg (1,000 unit) capsule famotidine 20 mg tablet 20 mg PO DAILY #90 tabs 08/04/24 finasteride 5 mg tablet 5 mg PO DAILY #90 tabs 08/04/24 glimepiride 4 mg tablet 4 mg PO BID #90 tabs 08/04/24 rosuvastatin 20 mg tablet 20 mg PO DAILY #90 tabs 08/04/24 warfarin 3 mg tablet See Rx Instructions .Route 08/04/24 .COMPLEX #60 tabs warfarin 4 mg tablet 4 mg PO .COMPLEX #30 tabs 08/04/24 metoprolol tartrate 100 mg tablet See Rx Instructions .Route 09/03/24 .COMPLEX #120 tabs Allergies Allergy/AdvReac Type Severity Reaction Status Date / Time pioglitazone (From Actos) Allergy Unknown Unknown Verified 07/14/24 15:23 saxagliptin (From Onglyza) Allergy Unknown Unknown Verified 07/14/24 15:23 metformin AdvReac Intermediate diarrhea Verified 07/14/24 15:23 Review of Systems General: Reports: 10 or more systems reviewed and unremarkable except in HPI and below Const: Denies: fever(s) or chills Card: Denies: chest pain Resp: Denies: dyspnea GI: Denies: abdominal pain, nausea, vomiting or diarrhea Musc: Denies: extremity pain or joint pain Skin/Breast: Reports: new lesions (Skin tear with bleeding to right forearm); Denies: rash, skin pain or skin tenderness Neuro: Denies: headache(s) PFSH ED PFSH: Medical History Obstructive sleep apnea declined c-pap Ischemic cardiomyopathy CAD (coronary artery disease) LVH (left ventricular hypertrophy) Hyperlipidemia CKD (chronic kidney disease) Atrial fibrillation Diabetes HTN (hypertension) Carotid stenosis, bilateral Anticoagulant long-term use Surgical History S/P CABG (coronary artery bypass graft) S/P ICD (internal cardiac defibrillator) procedure Family History Father CAD (coronary artery disease) Brother CAD (coronary artery disease) Sister CAD (coronary artery disease) Stroke Mother Cancer Diabetes Denies family history of Clotting disorder Dementia Chronic kidney disease (CKD) Suicide Anesthesia complication Bleeding disorder Lung disease Social History Smoking and tobacco/nicotine status: unknown if used tobacco/nicotine Alcohol intake: never Substance/Drug Use: former Household members: spouse Marital status: service: No Current occupational status: retired Physical Exam Const: COMMON NORMALS: no acute distress, average body habitus, patient oriented x3, no limitations, healthy appearing, alert and well nourished HENMT: COMMON NORMALS: normocephalic and atraumatic HEAD & SCALP: normocephalic and atraumatic Neck/C-Spine: COMMON NORMALS: full ROM, no lymphadenopathy, supple and no meningeal signs Resp: COMMON NORMALS: normal respiratory effort, No use of accessory muscles and clear to auscultation bilaterally AUSCULTATION: clear to auscultation bilaterally Cardio: COMMON NORMALS: regular rate and regular rhythm RATE: regular rate RHYTHM: regular rhythm Extremity: COMMON NORMALS: full ROM and capillary refill normal Neuro: COMMON NORMALS: patient oriented x3 SENSORIUM/ORIENTATION: Yes alert MENINGEAL SIGNS: Yes no meningeal signs Skin: COMMON NORMALS: no wounds and turgor normal NARRATIVE SKIN EXAM: Skin tear to right forearm with very minimal bleeding, presence of active clotting. GENERAL SKIN EXAM: turgor normal Course Vital Signs: Vital signs: Vital Signs Temperature 97.2 F L 10/08/24 18:48 Pulse Rate 70 10/08/24 18:56 Respiratory Rate 18 10/08/24 18:56 Blood Pressure 167/90 10/08/24 18:56 Pulse Oximetry 98 10/08/24 18:56 Oxygen Delivery Me thod Room Air 10/08/24 18:48 MDM - Wound/Laceration Medical Decision Making Patient presented for bleeding skin tear, though there was minimal bleeding at time of exam. TXA gauze was placed and wrapped, encouraged to follow-up with primary care for wound recheck and return if bleeding persists. He verbalized understanding to return precautions. No radiology studies performed this visit Discharge Plan Discharge Patient Disposition: Home Clinical Impression: Skin tear Condition: Stable Prescriptions: No Action metoprolol tartrate 100 mg tablet See Rx Instructions .ROUTE .COMPLEX Qty: 120 3RF Dose Instruction: TAKE 1 TABLET TWICE A DAY Rx Instructions: 1/2 tablet in AM and 1 in PM. amlodipine 10 mg tablet 10 mg PO DAILY Qty: 90 3RF cholecalciferol (vitamin D3) 25 mcg (1,000 unit) capsule 25 mcg PO DAILY Qty: 90 3RF famotidine 20 mg tablet 20 mg PO DAILY Qty: 90 3RF finasteride 5 mg tablet 5 mg PO DAILY Qty: 90 3RF glimepiride 4 mg tablet 4 mg PO BID Qty: 90 3RF rosuvastatin 20 mg tablet 20 mg PO DAILY Qty: 90 3RF warfarin 4 mg tablet 4 mg PO .COMPLEX Qty: 30 11RF Rx Instructions: Take 4mg tablet on Sunday and Sunday. Take 3mg all other days. warfarin 3 mg tablet See Rx Instructions .ROUTE .COMPLEX Qty: 60 3RF Rx Instructions: Take 4mg tablet on Sunday and Sunday. Take 3mg all other days. Discharge Orders: Discharge ED (Routine); Ordered 10/08/24 Ordered By: Yg Delacruz Referrals: Иван Cabezas MD [Primary Care Provider] - Patient Instructions: Skin Tear (ED) Activity Restrictions/Additional Instructions: Keep on bandage for the next 12 to 24 hours. Make sure on changing bandage that the bleeding has stopped and clot has formed. Follow-up with regular doctor. With any continued bleeding please return. Print Language: Pashto Coding Level of Care Code ED Home Day Care Provider for Syed Christie
[2024-10-08] MEDS: tranexamic acid 1,000 mg/10mL SDV 1000 MG IRRIGATION (19:20)
[2024-10-08 19:32] VITALS: BP 167/78; PULSE 69; O2SAT 95
== END 2024-10-08 19:33 | disposition home or self-care (01) ==
PROVIDERS: Emergency Provider Physician Assistant; PCP Family Medicine
DX: S41.111A Laceration without foreign body of right upper arm, initial encounter (principal); Z79.01 Long term (current) use of anticoagulants; E78.5 Hyperlipidemia, unspecified; E11.22 Type 2 diabetes mellitus with diabetic chronic kidney disease; I12.9 Hypertensive chronic kidney disease with stage 1 through stage 4 chronic kidney disease, or unspecified chronic kidney disease; N18.9 Chronic kidney disease, unspecified; I25.10 Atherosclerotic heart disease of native coronary artery without angina pectoris; X58.XXXA Exposure to other specified factors, initial encounter
CPT/HCPCS: 99284

== ENCOUNTER 2024-10-15 01:10 | Emergency (ER) | payer MEDICARE, OTHER, SELFPAY ==
[2024-10-15 01:15] VITALS: PULSE 57; RESP 18; TEMP 36.7; O2SAT 93; BMI 34.2
--- NOTE | 2024-10-15 01:22 | CTR_ITS ---
PROCEDURE INFORMATION: Exam: CT Maxillofacial Without Contrast Exam date and time: 10/15/2024 1:56 AM Age: 83 years old Clinical indication: Injury or trauma; Fall; Blunt trauma (contusions or hematomas); Eyelid and forehead; Upper right; Additional info: Trauamatic facial pain TECHNIQUE: Imaging protocol: Computed tomography of the face without contrast. Radiation optimization: All CT scans at this facility use at least one of these dose optimization techniques: automated exposure control; mA and/or kV adjustment per patient size (includes targeted exams where dose is matched to clinical indication); or iterative reconstruction. COMPARISON: CT head wo con* [id number] 10/15/2024 1:53 AM RADIATION DOSE METRICS: Total DLP (mGy-cm): 563.68 FINDINGS: Paranasal sinuses: No air-fluid levels. Orbital cavities: Orbits are normal. Globes are unremarkable. Bones: No acute fracture. Soft tissues: Right periorbital/supraorbital soft tissue swelling/laceration. CT/CT facial bones wo con* [id number] IMPRESSION: 1. Right periorbital/supraorbital soft tissue swelling/laceration. 2. No acute osseous abnormality.
--- NOTE | 2024-10-15 01:22 | CTR_ITS ---
PROCEDURE INFORMATION: Exam: CT Head Without Contrast Exam date and time: 10/15/2024 1:53 AM Age: 83 years old Clinical indication: Injury or trauma; Fall; Blunt trauma (contusions or hematomas); Additional info: Fall, head injury TECHNIQUE: Imaging protocol: Computed tomography of the head without contrast. Radiation optimization: All CT scans at this facility use at least one of these dose optimization techniques: automated exposure control; mA and/or kV adjustment per patient size (includes targeted exams where dose is matched to clinical indication); or iterative reconstruction. COMPARISON: CT neck w con* [id number] 10/06/2024 2:54 PM RADIATION DOSE METRICS: Total DLP (mGy-cm): 1245.38 FINDINGS: Brain: There is generalized brain atrophy. Marcano-white differentiation is preserved. Amorphous lucency is present in the supratentorial white matter bilaterally. No evidence of intracranial hemorrhage or mass effect. Cerebral ventricles: No ventriculomegaly. Paranasal sinuses: Visualized sinuses are unremarkable. No fluid levels. Mastoid air cells: Visualized mastoid air cells are well aerated. Bones: Unremarkable. No acute fracture. Soft tissues: Right supraorbital/periorbital soft tissue swelling/hematoma. CT/CT head wo con* [id number] IMPRESSION: 1. Right supraorbital/periorbital soft tissue swelling/hematoma. 2. Cerebral atrophy and chronic cerebral microvascular disease. 3. No evidence of acute intracranial process.
--- NOTE | 2024-10-15 01:25 | W.ED.HEATRA ---
HPI - Head Injury General: Chief complaint: Head Injury Stated complaint: Fell Head Injury Time Seen by Provider: 10/15/24 01:15 History of Present Illness: 83-year with a history of coronary artery disease, ischemic cardiomyopathy, chronic kidney disease, atrial fibrillation with chronic anticoagulation with Coumadin, diabetes, carotid stenosis, hypertension and hyperlipidemia who presents to the emergency room after a fall causing head injury. Lost balance and fell. No loss of consciousness. No altered mental status. No vomiting. He has a stellate laceration over his right eye. Related Data Previous Rx's ?Medication ?Instructions ?Recorded amlodipine 10 mg tablet 10 mg PO DAILY #90 tabs 08/04/24 cholecalciferol (vitamin D3) 25 25 mcg PO DAILY #90 caps 08/04/24 mcg (1,000 unit) capsule famotidine 20 mg tablet 20 mg PO DAILY #90 tabs 08/04/24 finasteride 5 mg tablet 5 mg PO DAILY #90 tabs 08/04/24 glimepiride 4 mg tablet 4 mg PO BID #90 tabs 08/04/24 rosuvastatin 20 mg tablet 20 mg PO DAILY #90 tabs 08/04/24 warfarin 3 mg tablet See Rx Instructions .Route 08/04/24 .COMPLEX #60 tabs warfarin 4 mg tablet 4 mg PO .COMPLEX #30 tabs 08/04/24 metoprolol tartrate 100 mg tablet See Rx Instructions .Route 09/03/24 .COMPLEX #120 tabs furosemide 40 mg tablet 40 mg PO DAILY #30 tabs 10/13/24 potassium chloride 20 mEq 20 meq PO QDAY #30 tabs 10/13/24 tablet,extended release Allergies Allergy/AdvReac Type Severity Reaction Status Date / Time pioglitazone (From Actos) Allergy Unknown Unknown Verified 10/15/24 01:22 saxagliptin (From Onglyza) Allergy Unknown Unknown Verified 10/15/24 01:22 metformin AdvReac Intermediate diarrhea Verified 10/15/24 01:22 Review of Systems Narrative: Constitutional symptoms: Negative except as documented in HPI. Skin symptoms: Negative except as documented in HPI. Eye symptoms: Negative except as documented in HPI. ENMT symptoms: Negative except as documented in HPI. Respiratory symptoms: Negative except as documented in HPI. Cardiovascular symptoms: Negative except as documented in HPI. Gastrointestinal symptoms: Negative except as documented in HPI. Genitourinary symptoms: Negative except as documented in HPI. Musculoskeletal symptoms: Negative except as documented in HPI. Neurologic symptoms: Negative except as documented in HPI. Psychiatric symptoms: Negative except as documented in HPI. Endocrine symptoms: Negative except as documented in HPI. PFSH ED PFSH: Medical History Obstructive sleep apnea declined c-pap Ischemic cardiomyopathy CAD (coronary artery disease) LVH (left ventricular hypertrophy) Hyperlipidemia CKD (chronic kidney disease) Atrial fibrillation Diabetes HTN (hypertension) Carotid stenosis, bilateral Anticoagulant long-term use Surgical History S/P CABG (coronary artery bypass graft) S/P ICD (internal cardiac defibrillator) procedure Family History Father CAD (coronary artery disease) Brother CAD (coronary artery disease) Sister CAD (coronary artery disease) Stroke Mother Cancer Diabetes Denies family history of Clotting disorder Dementia Chronic kidney disease (CKD) Suicide Anesthesia complication Bleeding disorder Lung disease Social History Smoking and tobacco/nicotine status: unknown if used tobacco/nicotine Alcohol intake: never Substance/Drug Use: former Household members: spouse Marital status: service: No Current occupational status: retired Physical Exam Narrative: EXAM NARRATIVE: General: Alert, no acute distress. Skin: Warm, dry. Head: Normocephalic, laceration as seen below. Neck: Supple, trachea midline. Eye: Extraocular movements are intact. Ears, nose, mouth and throat: mucosa moist. Cardiovascular: Regular, Normal peripheral perfusion. Respiratory: Lungs are clear to auscultation, respirations are non-labored, breath sounds are equal, Symmetrical chest wall expansion. Gastrointestinal: Soft, Nontender, Non distended Musculoskeletal: Normal ROM, no deformity. Neurological: Alert and oriented, No focal neurological deficit observed. Psychiatric: Cooperative, appropriate mood & affect. Course Vital Signs: Vital signs: Vital Signs Temperature 98.0 F 10/15/24 01:15 Pulse Rate 55 L 10/15/24 01:38 Respiratory Rate 18 10/15/24 01:15 Blood Pressure 156/75 10/15/24 01:38 Pulse Oximetry 96 10/15/24 01:38 Oxygen Delivery Me thod Room Air 10/15/24 01:38 MDM - Head Injury Medcial Decision Making CT head: No acute intracranial process. no intracranial hemorrhage, no evidence of infarct. no evidence of acute fracture.This was reviewed and interpreted by myself the ER physician. Lab review: I reviewed and interpreted labs personally. No leukocytosis. No anemia. No renal failure. Patient does have a low glucose at 45. INR slightly elevated at 3.3. Discussed holding his Coumadin today. He has an appointment with his primary care doctor. Laceration repair procedure: Time: 2:10 AM Confirmed patient, procedure, side, and site. Time out performed prior to procedure. Verbal consent was obtained by patient and/or responsible libertarian. Indication: Laceration Location: Right forehead/eyebrow Length: 4 cm Description: Stellate complicated. See above picture. Anesthesia: mL 1% lidocaine with epinephrine Area prepared by sterile field with Betadine. # 8, 4-0 sutures were utilized, simple, interrupted technique. Post procedure examination: Circulation, motor, sensory intact. Patient tolerated the procedure well. No complications, bleeding. Total time: 20 min. Pt advised to keep the area clean and dry, wash twice per day with antibacterial soap and water. Return to the ED or PCP in 7-10 days for suture removal. Assessment and plan: - Discharged home - Discussed plan with patient. Answered any questions. - Evaluation and treatment of this problem were appropriate in the emergency setting. Lab Data 10/15/24 01:35 10/15/24 01:[address] 10/15/24 01:22 IMPRESSION: 1. Right periorbital/supraorbital soft tissue swelling/laceration. 2. No acute osseous abnormality. Head CT 10/15/24 01:22 IMPRESSION: 1. Right supraorbital/periorbital soft tissue swelling/hematoma. 2. Cerebral atrophy and chronic cerebral microvascular disease. 3. No evidence of acute intracranial process. Laboratory Results WBC 8.75 10^3/uL (3.29-11.43) 10/15/24 01:35 RBC 4.08 10^6/uL (3.85-5.65) 10/15/24 01:35 Hgb 10.80 g/dL (11.27-16.99) L 10/15/24 01:35 Hct 36.3 % (37-53) L 10/15/24 01:35 MCV 89.0 fl (82-101) 10/15/24 01:35 MCH 26.5 pg (27-33) L 10/15/24 01:35 MCHC 29.8 g/dL (30-55) L 10/15/24 01:35 RDW 14.2 % (12.1-15.1) 10/15/24 01:35 Plt Count 185 10^3/cmm (157-399) 10/15/24 01:35 MPV 11.5 fL (7.4-10.4) H 10/15/24 01:35 Neut % (Auto) 81.1 % 10/15/24 01:35 Lymph % (Auto) 7.3 % 10/15/24 01:35 [place] % (Auto) 9.8 % 10/15/24 01:35 Eos % (Auto) 0.9 % 10/15/24 01:35 Baso % (Auto) 0.7 % 10/15/24 01:35 Neut # (Auto) 7.09 10^3/uL (1.8-7.7) 10/15/24 01:35 Lymph # (Auto) 0.6 10^3/uL (0.8-4.8) L 10/15/24 01:35 [place] # (Auto) 0.9 10^3/uL (0.2-0.9) 10/15/24 01:35 Eos # (Auto) 0.1 10^3/uL (0.0-0.8) 10/15/24 01:35 Baso # (Auto) 0.1 10^3/uL (0.0-0.1) 10/15/24 01:35 Nucleated RBC % (auto) 0 % 10/15/24 01:35 Nucleated RBCs # 0.0 /100WBC 10/15/24 01:35 PT 35.70 SECONDS (12.1-14.9) H 10/15/24 01:35 INR 3.34 (0.8-1.2) H 10/15/24 01:35 APTT 94.0 SECONDS (23.9-36.7) H 10/15/24 01:35 Sodium 140 mmol/L (136-145) 10/15/24 01:35 Potassium 3.1 mmol/L (3.5-5.1) L 10/15/24 01:35 Chloride 102 mmol/L (98-107) 10/15/24 01:35 Carbon Dioxide 25 mmol/L (22-29) 10/15/24 01:35 Anion Gap 16.1 (5-19) 10/15/24 01:35 BUN 15 mg/dL (8-23) 10/15/24 01:35 Creatinine 1.0 mg/dL (0.7-1.2) 10/15/24 01:35 GFR Calculation Not Reportable 10/15/24 01:35 Glucose 45 mg/dL (65-115) L 10/15/24 01:35 POC Glucose 98 mg/dL (70-110) 10/15/24 03:08 Calculated Osmolality 288 mOsm/kg (285-295) 10/15/24 01:35 Calcium 9.2 mg/dL (8.5-10.5) 10/15/24 01:35 Total Bilirubin 1.5 mg/dL (0.15-1.2) H 10/15/24 01:35 AST 18 U/L (0-40) 10/15/24 01:35 ALT 6 U/L (0-41) 10/15/24 01:35 Alkaline Phosphatase 82 U/L (40-130) 10/15/24 01:35 Total Protein 7.3 g/dL (6.6-8.7) 10/15/24 01:35 Albumin 3.4 g/dL (3.5-5.2) L 10/15/24 01:35 Globulin 3.9 g/dL (1.3-4.6) 10/15/24 01:35 All radiology interpretation(s) finalized by discharge Discharge Plan Discharge Patient Disposition: Home Clinical Impression: Complex laceration of face, Chronic anticoagulation, Fall, Hypoglycemia, Head injury, Coagulopathy Condition: Stable Prescriptions: No Action furosemide 40 mg tablet 40 mg PO DAILY Qty: 30 11RF potassium chloride 20 mEq tablet extended release 20 meq PO QDAY Qty: 30 11RF metoprolol tartrate 100 mg tablet See Rx Instructions .ROUTE .COMPLEX Qty: 120 3RF Dose Instruction: TAKE 1 TABLET TWICE A DAY Rx Instructions: 1/2 tablet in AM and 1 in PM. amlodipine 10 mg tablet 10 mg PO DAILY Qty: 90 3RF cholecalciferol (vitamin D3) 25 mcg (1,000 unit) capsule 25 mcg PO DAILY Qty: 90 3RF famotidine 20 mg tablet 20 mg PO DAILY Qty: 90 3RF finasteride 5 mg tablet 5 mg PO DAILY Qty: 90 3RF glimepiride 4 mg tablet 4 mg PO BID Qty: 90 3RF rosuvastatin 20 mg tablet 20 mg PO DAILY Qty: 90 3RF warfarin 4 mg tablet 4 mg PO .COMPLEX Qty: 30 11RF Rx Instructions: Take 4mg tablet on Sunday and Sunday. Take 3mg all other days. warfarin 3 mg tablet See Rx Instructions .ROUTE .COMPLEX Qty: 60 3RF Rx Instructions: Take 4mg tablet on Sunday and Sunday. Take 3mg all other days. Discharge Orders: Discharge ED (Routine); Ordered 10/15/24 Ordered By: Marion Rodriguez Referrals: Иван Cabezas MD [Primary Care Provider] - Discharge Diet: Usual diet Discharge Activity: Increase activity as tolerated Patient Instructions: Care For Your Stitches (ED), Opioid Safety, Pain Management Activity Restrictions/Additional Instructions: Hold your Coumadin and your glimepiride until your appointment on with your primary and he can decide whether to start you back in on how much. Keep the area clean and dry, wash twice per day with antibacterial soap and water. Return to your primary provider or the emergency room in 10 days for suture removal. Avoid any prolonged submersion in water. Avoid all manrique water, pond water, streams or other untreated water. Thank you for choosing [facility] for your healthcare needs today. Please realize this is an emergency room and that we are providing you with a medical screening exam and this may not be complete and all inclusive of all the testing and or work up that you may need to determine your ailment or severity of your illness. You have been screened and evaluated and felt safe for discharge. Health conditions do change or evolve sometimes and as such it is important that you follow up with your Primary Doctor to be re checked, 3-5 days is a general good time frame for follow up. You are always welcome to return to the ED for re assessment if your symptoms are worsening or you have new concerns Print Language: Macedonian Coding Level of Care Code ED Molder Floor for Syed Christie
[2024-10-15 01:38] VITALS: BP 156/75; PULSE 55; O2SAT 96
[2024-10-15 01:40] LABS: Basophils # 0.1 10^3/uL (0.0-0.1); Basophils % 0.7 %; Eosinophils # 0.1 10^3/uL (0.0-0.8); Eosinophils % 0.9 %; Hematocrit 36.3 % (37-53); Lymphocytes # 0.6 10^3/uL (0.8-4.8); Lymphocytes % 7.3 %; Mean Corpuscular HGB Conc 29.8 g/dL (30-55); Mean Corpuscular Hemoglobin 26.5 pg (27-33); Mean Platelet Volume 11.5 fL (7.4-10.4); Monocytes # 0.9 10^3/uL (0.2-0.9); Monocytes % 9.8 %; Neutrophils # 7.09 10^3/uL (1.8-7.7); Neutrophils % 81.1 %; Nucleated Red Blood Cells % 0 %; Platelet Count 185 10^3/cmm (157-399); Red Blood Count 4.08 10^6/uL (3.85-5.65); Red Cell Distribution Width 14.2 % (12.1-15.1); White Blood Count 8.75 10^3/uL (3.29-11.43)
[2024-10-15 01:52] LABS: INR 3.34 (0.8-1.2)
[2024-10-15 02:00] LABS: Alanine Aminotransferase 6 U/L (0-41); Albumin Level 3.4 g/dL (3.5-5.2); Alkaline Phosphatase 82 U/L (40-130); Anion Gap 16.1 (5-19); Aspartate Amino Transferase 18 U/L (0-40); Blood Urea Nitrogen 15 mg/dL (8-23); Calcium 9.2 mg/dL (8.5-10.5); Carbon Dioxide 25 mmol/L (22-29); Chloride 102 mmol/L (98-107); Globulin 3.9 g/dL (1.3-4.6); Glucose 45 mg/dL (65-115); Osmolality Calculated 288 mOsm/kg (285-295); Potassium 3.1 mmol/L (3.5-5.1); Sodium 140 mmol/L (136-145); Total Bilirubin 1.5 mg/dL (0.15-1.2); Total Protein 7.3 g/dL (6.6-8.7)
[2024-10-15 02:30] VITALS: BP 154/72; PULSE 54; O2SAT 95
[2024-10-15 02:35] LABS: Glucose Point of Care 58 mg/dL (70-110)
[2024-10-15] MEDS: lidocaine-epi 1% 20 mL INJ INJECTION (02:42)
[2024-10-15 03:11] LABS: Glucose Point of Care 98 mg/dL (70-110)
[2024-10-15] MEDS: tetanus-dipt-pertussis 0.5 mL SDV IM (03:16)
[2024-10-15 03:27] VITALS: BP 140/70; PULSE 56; O2SAT 98
== END 2024-10-15 03:28 | disposition home or self-care (01) ==
PROVIDERS: Emergency Provider Emergency Medicine; PCP Family Medicine
DX: S01.81XA Laceration without foreign body of other part of head, initial encounter (principal); Z79.01 Long term (current) use of anticoagulants; E11.649 Type 2 diabetes mellitus with hypoglycemia without coma; E11.22 Type 2 diabetes mellitus with diabetic chronic kidney disease; I12.9 Hypertensive chronic kidney disease with stage 1 through stage 4 chronic kidney disease, or unspecified chronic kidney disease; N18.9 Chronic kidney disease, unspecified; I25.10 Atherosclerotic heart disease of native coronary artery without angina pectoris; E78.5 Hyperlipidemia, unspecified; Z95.1 Presence of aortocoronary bypass graft; W19.XXXA Unspecified fall, initial encounter; S09.90XA Unspecified injury of head, initial encounter; Z23 Encounter for immunization
CPT/HCPCS: 12013; 36415; 36416; 70450; 70486; 80053; 82962; 85025; 85610; 85730; 90471; 90715; 99284; J9999

== ENCOUNTER 2024-10-20 09:23 | Outpatient (CLI) | payer MEDICARE, OTHER, SELFPAY ==
--- NOTE | 2024-10-20 09:27 | FL_ITS ---
WS: [id number] Exam: FL barium swallow modifd [id number] Date/Time of Exam: 10/20/2024 9:50 AM Reason For Exam: Other dysphagia Fluoroscopy time: Modified barium swallow test was performed in conjunction with the speech therapy service. Minutes # of spot films: Oropharyngeal phase of swallowing was normal. The patient tolerated all consistencies of barium mixture foodstuffs without aspiration. The patient swallowed the barium tablet without difficulty however the tablet was retained in the lower esophagus. The tablet was propelled into the stomach with a single drink of thin liquid barium. IMPRESSION1. No evidence of aspiration or penetration. 2. When the patient swallowed a barium tablet it was retained in the midesophagus. The tablet was propelled into the stomach with a single drink of thin liquid barium. A separate report and recommendations will follow from the speech therapy service.
== END 2024-10-20 09:24 | disposition home or self-care (01) ==
PROVIDERS: PCP Family Medicine; Visit Provider Specialist
DX: R13.19 Other dysphagia (principal); K22.4 Dyskinesia of esophagus
CPT/HCPCS: 74230; 92611

== ENCOUNTER → 2024-10-23 14:25 | Outpatient (BNVA) | payer MEDICARE, OTHER, SELFPAY | PROVIDERS: PCP Family Medicine; Visit Provider Family Medicine | DX: I50.9 Heart failure, unspecified (principal) | CPT/HCPCS: 80048 ==

== ENCOUNTER → 2024-11-06 11:04 | Outpatient (BNVA) | payer MEDICARE, OTHER, SELFPAY | PROVIDERS: PCP Family Medicine; Visit Provider Family Medicine | DX: I10 Essential (primary) hypertension (principal); I50.9 Heart failure, unspecified; I25.10 Atherosclerotic heart disease of native coronary artery without angina pectoris; I48.91 Unspecified atrial fibrillation; Z79.01 Long term (current) use of anticoagulants; E11.9 Type 2 diabetes mellitus without complications; R06.00 Dyspnea, unspecified | CPT/HCPCS: 80053; 83036; 83880; 85025; 85610 ==

== ENCOUNTER 2024-11-13 11:01 | Outpatient (CLI) | payer MEDICARE, OTHER, SELFPAY ==
--- NOTE | 2024-11-13 11:15 | USCV_ITS ---
Pelon Melo Age: 83 Gender: M : 1940 Exam Date: 11/13/2024 11:15 Ordering Phys: Иван Cabezas MD Technologist: YULIANA Exam Location: [place] Indication: MR BP: 144 / 65 HR: 53 Rhythm: Sinus Technical Quality: Adequate MEASUREMENTS (Male / Female) Normal Values 2D ECHO LV Diastolic Diameter PLAX 5.4 cm 4.2 - 5.9 / 3.9 - 5.3 cm IVS Diastolic Thickness 1.3 cm 0.6 - 1.0 / 0.6 - 0.9 cm IVS Systolic Thickness 1.8 cm LVPW Diastolic Thickness 1.1 cm 0.6 - 1.0 / 0.6 - 0.9 cm LVPW Systolic Thickness 1.7 cm LVOT Diameter 1.9 cm LV Ejection Fraction 2D Teich 59.8 % LV Ejection Fraction MOD 4C 58.8 % LV Ejection Fraction MOD 2C 59.6 % LV Ejection Fraction 2C AL 58.9 % LA Diameter 4.6 cm RA Systolic Volume 4C AL 115.2 ml RA Systolic Volume 4C MOD 110.8 ml LA Sys Volume AL 101.8 cm cubed LA Sys Volume Index AL 49.3 cm cubed/m squared Aorta at Sinotubular Diameter 2.9 cm IVC Diameter 2.3 cm M-MODE LA Ao Ratio MM 2.0 AV Cusp Separation MM 1.1 cm DOPPLER AV Peak Velocity 168.0 cm/s LVOT Peak Velocity 71.0 cm/s AV Area Cont Eq vti 1.1 cm squared AV Area Cont Eq pk 1.2 cm squared MV Peak Velocity 148.0 cm/s MV Area PHT 6.2 cm squared Mitral E to A Ratio 2.1 TR Peak Velocity 231.0 cm/s TR Peak Gradient 21.3 mmHg TV Peak E Velocity 101.0 cm/s PV Peak Velocity 88.0 cm/s FINDINGS Left Ventricle Normal left ventricular size and systolic function, EF 59%. Slightly dyskinetic basal septal segment Right Ventricle Normal RV size and ejection fraction.of 59% Pacemaker/defibrillator wire in the right ventricle diffuse hypokinesia of the septum. Right Atrium Moderately increased right atrial size. Catheter/pacemaker wire in the right atrial cavity. Left Atrium Moderately increased left atrial size. Mitral Valve Thickened mitral valve. At least moderately severe eccentric mitral regurgitation Aortic Valve Thickened aortic valve. Tricuspid Valve No gross abnormalities Pulmonic Valve No gross abnormalities noted Pericardium No pericardial effusion. Aorta Normal aortic annulus size. IVC Normal IVC dimension with <50% respiratory change of the inferior vena cava. CONCLUSIONS Normal left ventricular size and systolic function, EF 59%. Slightly dyskinetic basal septal segment. Normal RV size and ejection fraction. Pacemaker/defibrillator wire in the right ventricle diffuse hypokinesia of the septum. Moderately increased left atrial size. Thickened mitral valve. Moderate mitral annular calcification. . At least moderately severe eccentric mitral regurgitation There is no pericardial effusion. There are no intracardiac masses. Compared to the study from 04/27/2023. There may be some worsening of the mitral regurgitation Dr Krystal Dupree MD FAC (Electronically Signed) Final Date: 14 November 2024 17:43 S
== END 2024-11-13 11:02 | disposition home or self-care (01) ==
PROVIDERS: PCP Family Medicine; Visit Provider Family Medicine
DX: I51.7 Cardiomegaly (principal); I25.5 Ischemic cardiomyopathy; R93.1 Abnormal findings on diagnostic imaging of heart and coronary circulation; Z96.89 Presence of other specified functional implants; I34.0 Nonrheumatic mitral (valve) insufficiency; I35.8 Other nonrheumatic aortic valve disorders
CPT/HCPCS: 93306

== ENCOUNTER → 2024-12-09 08:38 | Outpatient (BNVA) | payer MEDICARE, OTHER, SELFPAY | PROVIDERS: PCP Family Medicine; Visit Provider Family Medicine | DX: R06.00 Dyspnea, unspecified (principal); R63.4 Abnormal weight loss; I10 Essential (primary) hypertension; I25.10 Atherosclerotic heart disease of native coronary artery without angina pectoris; E78.5 Hyperlipidemia, unspecified; Z79.01 Long term (current) use of anticoagulants; I50.9 Heart failure, unspecified | CPT/HCPCS: 80053; 83880; 84443; 85025; 85610; 86140 ==

== ENCOUNTER → 2025-01-14 15:30 | Outpatient (BNVA) | payer MEDICARE, OTHER, SELFPAY | PROVIDERS: PCP Family Medicine; Visit Provider Internal Medicine | DX: I25.10 Atherosclerotic heart disease of native coronary artery without angina pectoris (principal); I34.0 Nonrheumatic mitral (valve) insufficiency; I65.23 Occlusion and stenosis of bilateral carotid arteries; I25.5 Ischemic cardiomyopathy; E78.5 Hyperlipidemia, unspecified; I48.91 Unspecified atrial fibrillation; Z79.01 Long term (current) use of anticoagulants; E11.9 Type 2 diabetes mellitus without complications; I10 Essential (primary) hypertension; Z95.1 Presence of aortocoronary bypass graft; Z95.810 Presence of automatic (implantable) cardiac defibrillator | CPT/HCPCS: 99214 ==

== ENCOUNTER → 2025-01-20 10:32 | Outpatient (BNVA) | payer MEDICARE, OTHER, SELFPAY | PROVIDERS: PCP Family Medicine; Visit Provider Family Medicine | DX: I48.91 Unspecified atrial fibrillation (principal) | CPT/HCPCS: 85610 ==

== ENCOUNTER 2025-02-02 11:08 | Outpatient (CLI) | payer MEDICARE, OTHER, SELFPAY ==
--- NOTE | 2025-02-02 11:15 | USCV_ITS ---
Pelon Melo Age: 84 Gender: M : 1940 Exam Date: 02/02/2025 11:20 Ordering Phys: Huber Ng M.D ([email or web address]) Technologist: WINSOME [place] [facility] [place]: [place] Risk Factors: Previous Vascular Surgery: Right Brachial BP: / Left Brachial BP: / Right Left Velocity (cm/s) Spectral Plaque Velocity (cm/s) Spectral Plaque Syst/Diast Broadening Syst/Diast Broadening 54.30/ 12.80 Prox CCA 76.20 / 10.50 41.30/ 8.90 Mid CCA 52.80 / 10.40 55.60/ 14.10 Distal CCA 49.20 / 14.10 74.60/ 11.50 Prox ICA 110.10/ 23.40 91.30/ 19.20 Mid ICA 68.30 / 15.00 74.50/ 19.20 Distal ICA 40.40 / 9.00 73.60 ECA 85.40 1.30 ICA/CCA 2.20 Antegrade Vertebral Antegrade 12.40/ 7.00 cm/s 32.20/ 7.60 cm/s Tri Subclavian Bi 61.20 108.4 0 CONCLUSIONS Right ICA stenosis <50%. Moderate atheromatous plaque right carotid bulb/ICA. Left ICA stenosis <50%. Moderate atheromatous plaque left carotid bulb/ICA. Intimal thickening in the common carotid arteries and internal carotid arteries bilaterally. Normal antegrade Doppler flow noted in the right vertebral artery. Normal antegrade Doppler flow noted in the left vertebral artery. Cristian Murray MD (Electronically Signed) Final Date: 02 February 2025 15:31 S
== END 2025-02-02 11:09 | disposition home or self-care (01) ==
PROVIDERS: PCP Family Medicine; Visit Provider Internal Medicine
DX: I65.23 Occlusion and stenosis of bilateral carotid arteries (principal)
CPT/HCPCS: 93880

== ENCOUNTER → 2025-02-19 08:40 | Outpatient (BNVA) | payer MEDICARE, OTHER, SELFPAY | PROVIDERS: PCP Family Medicine; Visit Provider Family Medicine | DX: Z79.01 Long term (current) use of anticoagulants (principal); I48.91 Unspecified atrial fibrillation | CPT/HCPCS: 85610 ==

== ENCOUNTER → 2025-03-24 11:04 | Outpatient (BNVA) | payer MEDICARE, OTHER, SELFPAY | PROVIDERS: PCP Family Medicine; Visit Provider Family Medicine | DX: Z79.01 Long term (current) use of anticoagulants (principal); F32.A Depression, unspecified; I10 Essential (primary) hypertension; I50.9 Heart failure, unspecified; I48.91 Unspecified atrial fibrillation; E78.5 Hyperlipidemia, unspecified; E11.9 Type 2 diabetes mellitus without complications | CPT/HCPCS: 80053; 80061; 83036; 85025; 85610 ==

== ENCOUNTER 2025-03-31 06:27 | Outpatient (CLI) | payer MEDICARE, OTHER, SELFPAY ==
--- NOTE | 2025-03-31 07:00 | CT_ITS ---
WS: [id number] CT ANGIOGRAM CAROTID ARTERIES HISTORY: fu on carotid artery disease TECHNIQUE: CT angiogram is performed of the carotid arteries. During arterial injection imaging is obtained from the skull base to the aortic arch in 1.25 mm imaging. Coronal and sagittal reformats are submitted, MIP imaging also reviewed. Additional multiplanar reformats of the carotid arteries are oconnor bmitted. NASCET criteria utilized. All CT scans at [facility] use at least one of these dose optimization techniques: automated exposure control; mA and/or kV adjustment per patient size (includes targeted exams where dose is matched to clinical indication); or iterative reconstruction. CONTRAST: Omnipaque 350; 100 mL IV. DLP: 271.34 mGy.cm COMPARISON: 01/22/2023 Right carotid: Common carotid artery: Arises normally from the innominate. Scattered plaque throughout the RIGHT common carotid artery through the. Internal carotid artery: Moderately dense calcified plaque through the bifurcation into the proximal ICA. Stenosis estimated at 63%. Visually the stenosis appears slightly greater. External carotid artery: Extensive plaque but patent. Left carotid: Common carotid artery: Arises normally from the aortic arch. Small amount of calcified plaque at the origin. Tortuous common carotid artery with dense calcified plaque at the bifurcation. Plaque extends into the internal and external iliac arteries. Internal carotid artery: Dense calcified plaque in the internal and external iliac arteries. Stenosis calculated at 72%. External carotid artery: Patent with plaque. Right vertebral artery: Very small caliber RIGHT vertebral artery but it is patent. Similar to the prior study. LEFT vertebral artery: Calcification in the proximal LEFT vertebral artery near its origin. Additional calcified plaque scattered in the vertebral artery as noted before. More dense plaque distally through the foramen magnum. Moderate to severe stenosis distal vertebral artery. Subclavian arteries: Patent with mild atherosclerotic plaque. Upper thorax: Motion artifact. Small bilateral layering pleural effusions are suspected. Slightly greater on the RIGHT. Moderate calcified plaque in the aortic arch. Thyroid gland: Atrophic thyroid with a peripherally calcified RIGHT thyroid nodule measuring 10 mm. Osseous structures: Cervical degenerative spondylosis. Skull base: Prior CABG. LEFT subclavian pacer. Dental caries. Dense calcified plaque in the intracranial carotid arteries through the cavernous sinuses. CT/CT angio neck [id number] IMPRESSION: 1. Extensive calcified plaque bilaterally in the cervical carotid bifurcations . 2. RIGHT ICA stenosis estimated at 63%. Similar to the prior study. Visually t his stenosis appears slightly greater than 63%. 3. LEFT ICA stenosis estimated at 72%. Similar to the prior study. 4. Very small caliber but patent RIGHT vertebral artery, no change. 5. Extensive plaque in the LEFT vertebral artery. Component of stenosis is mod erate to severe through the foramen magnum and the distal vertebral artery. 6. Atherosclerotic plaque in the aortic arch. 7. Prior CABG.
[2025-03-31] MEDS: iohexol 350 mg/mL 500 mL Btl (per mL) IV (07:13)
== END 2025-03-31 06:28 | disposition home or self-care (01) ==
PROVIDERS: PCP Family Medicine; Visit Provider Family Medicine
DX: I65.23 Occlusion and stenosis of bilateral carotid arteries (principal); I67.2 Cerebral atherosclerosis
CPT/HCPCS: 70498

== ENCOUNTER → 2025-04-22 10:58 | Outpatient (BNVA) | payer MEDICARE, OTHER, SELFPAY | PROVIDERS: PCP Family Medicine; Visit Provider Internal Medicine | DX: Z45.02 Encounter for adjustment and management of automatic implantable cardiac defibrillator (principal) | CPT/HCPCS: 93296 ==

== ENCOUNTER 2025-05-18 09:41 | Outpatient (CLI) | payer MEDICARE, OTHER, SELFPAY ==
--- NOTE | 2025-05-18 10:00 | USCV_ITS ---
Pelon Melo Age: 84 Gender: M : 1940 Exam Date: 05/18/2025 09:59 Ordering Phys: Huber Ng M.D ([email or web address]) Technologist: YULIANA [place] [facility] [place]: MR BP: 124 / 65 HR: 51 Rhythm: Sinus Technical Quality: Adequate MEASUREMENTS (Male / Female) Normal Values 2D ECHO LV Diastolic Diameter PLAX 5.7 cm 4.2 - 5.9 / 3.9 - 5.3 cm IVS Diastolic Thickness 1.3 cm 0.6 - 1.0 / 0.6 - 0.9 cm IVS Systolic Thickness 2.0 cm LVPW Diastolic Thickness 1.5 cm 0.6 - 1.0 / 0.6 - 0.9 cm LVPW Systolic Thickness 1.9 cm LVOT Diameter 2.0 cm LV Ejection Fraction 2D Teich 60.9 % LV Ejection Fraction MOD 4C 66.9 % LV Ejection Fraction MOD 2C 62.1 % LV Ejection Fraction 2C AL 63.8 % LA Diameter 5.1 cm RA Systolic Volume 4C AL 116.0 ml RA Systolic Volume 4C MOD 109.0 ml LA Sys Volume AL 108.9 cm cubed LA Sys Volume Index AL 50.7 cm cubed/m squared Aorta at Sinotubular Diameter 2.8 cm IVC Diameter 2.0 cm M-MODE LA Ao Ratio MM 1.3 AV Cusp Separation MM 1.3 cm DOPPLER AV Peak Velocity 296.5 cm/s LVOT Peak Velocity 66.0 cm/s AV Area Cont Eq vti 0.5 cm squared AV Area Cont Eq pk 0.7 cm squared MV Peak Velocity 133.0 cm/s MV Area PHT 6.2 cm squared Mitral E to A Ratio 3.0 TR Peak Velocity 239.0 cm/s TR Peak Gradient 22.8 mmHg TV Peak E Velocity 331.0 cm/s PV Peak Velocity 77.0 cm/s FINDINGS Left Ventricle Normal left ventricular size, systolic function and wall thickness, with no regional wall motion abnormalities. Left ventricular ejection fraction is estimated at 55%. Grade III/IV diastolic dysfunction (restrictive filling pattern), severely elevated filling pressures. Right Ventricle Normal right ventricular size and systolic function. Right Atrium Mildly increased right atrial size. Left Atrium Moderately increased left atrial size. IA Septum Normal appearance of the interatrial septum. Mitral Valve Moderately thickened mitral valve. Moderate mitral annular calcification. No mitral valve stenosis. Severe mitral valve regurgitation. Aortic Valve Severe aortic valve calcification. Severe aortic valve stenosis, mean gradient 16.9 mmHg, SARA 0.47 cm squared.trace aortic valve regurgitation. Cannot rule out psuedo aortic valve stenosis due to low pressure graient Tricuspid Valve Normal tricuspid valve structure. No tricuspid valve stenosis or regurgitation. Normal pulmonary pressure. Pulmonic Valve Normal pulmonic valve structure. No pulmonic valve stenosis or regurgitation. Pericardium No pericardial effusion. Aorta Normal diameter of the aortic root and ascending thoracic aorta. IVC Normal IVC diameter. CONCLUSIONS Normal left ventricular size, systolic function and wall thickness, with no regional wall motion abnormalities. Left ventricular ejection fraction is estimated at 55%. Grade III/IV diastolic dysfunction (restrictive filling pattern), severely elevated filling pressures. Moderately increased left atrial size. Moderately thickened mitral valve. Moderate mitral annular calcification. No mitral valve stenosis. Severe mitral valve regurgitation. Severe aortic valve calcification. Severe aortic valve stenosis, mean gradient 16.9 mmHg, SARA 0.47 cm squared.trace aortic valve regurgitation. Cannot rule out psuedo aortic valve stenosis due to low pressure graient There is no pericardial effusion. Right atrial pressure is around 10 mm of mercury. Desirae Magana MD (Electronically Signed) Final Date: 31 May 2025 17:45 S
== END 2025-05-18 09:42 | disposition home or self-care (01) ==
LOC: RAD 09:44
PROVIDERS: PCP Family Medicine; Visit Provider Internal Medicine
DX: I34.0 Nonrheumatic mitral (valve) insufficiency (principal); R93.1 Abnormal findings on diagnostic imaging of heart and coronary circulation; I51.7 Cardiomegaly; I34.81 Nonrheumatic mitral (valve) annulus calcification; I35.8 Other nonrheumatic aortic valve disorders; I35.0 Nonrheumatic aortic (valve) stenosis
CPT/HCPCS: 93306

== ENCOUNTER → 2025-07-01 08:29 | Outpatient (BNVA) | payer MEDICARE, OTHER, SELFPAY | PROVIDERS: PCP Family Medicine; Visit Provider Family Medicine | DX: F32.A Depression, unspecified (principal); I10 Essential (primary) hypertension; I25.10 Atherosclerotic heart disease of native coronary artery without angina pectoris; E78.5 Hyperlipidemia, unspecified; E11.9 Type 2 diabetes mellitus without complications; Z79.01 Long term (current) use of anticoagulants | CPT/HCPCS: 83036; 85025; 85610 ==

== ENCOUNTER → 2025-07-20 13:17 | Outpatient (BNVA) | payer MEDICARE, OTHER, SELFPAY | PROVIDERS: PCP Family Medicine; Visit Provider Internal Medicine | DX: I25.10 Atherosclerotic heart disease of native coronary artery without angina pectoris (principal); I25.5 Ischemic cardiomyopathy; E78.5 Hyperlipidemia, unspecified; I48.91 Unspecified atrial fibrillation; Z79.01 Long term (current) use of anticoagulants; E11.9 Type 2 diabetes mellitus without complications; Z79.84 Long term (current) use of oral hypoglycemic drugs; I10 Essential (primary) hypertension; I65.23 Occlusion and stenosis of bilateral carotid arteries; Z95.1 Presence of aortocoronary bypass graft; Z95.810 Presence of automatic (implantable) cardiac defibrillator; I35.0 Nonrheumatic aortic (valve) stenosis | CPT/HCPCS: 99214 ==